=== PATIENT | male | born 1995 | race Caucasian/White ===

== ENCOUNTER 2018-01-22 20:14 | Emergency (ER) | payer MEDICAID, OTHER ==
[2018-01-22] MEDS ORDERED: SODIUM CHLORIDE 0.9% 1,000 ML IV ONE (21:23)
--- NOTE | 2018-01-22 21:28 | ED Physician Documentation ---
History of Present Illness - Stated complaint Stated Complaint: DIZZY/NAUS/FEV/INSOMNIA - Chief complaint Chief Complaint: General - History obtained from History obtained from: Patient - History of Present Illness Timing: Today Pain level max: 0 Pain level now: 0 - Additonal information Additional information: 22-year-old male who presents to the emergency department stating that he felt dizzy and nauseated earlier today. States that he has just not been feeling well today. [place] feverish earlier. Denies any coughing or congestion. No vomiting. Patient states that he has normal bowel movements, but before he has the bowel movement he passes mucus. This is been ongoing for several weeks. No abdominal pain or cramping. No recent travel. Not taking any medications. Review of Systems Constitutional: denies: Myalgias Ears: denies: Ear pain, Drainage/discharge Throat: denies: Sore throat Cardiac: denies: Chest pain / pressure Respiratory: denies: Cough, Wheezing GI: denies: Vomiting, Diarrhea Skin: denies: Rash Musculoskeletal: denies: Neck pain, Back pain Neurologic: denies: Headache PD PAST MEDICAL HISTORY - Past Medical History Past Medical History: No - Past Surgical History Past Surgical History: No - Present Medications Home Medications: Ambulatory Orders Medication Instructions Recorded Confirmed Ondansetron Odt [Zofran] 4 mg TL Q6H PRN #10 tablet 01/22/18 - Allergies Allergies/Adverse Reactions: Allergies Allergy/AdvReac Type Severity Reaction Status Date / Time No Known Drug Allergies Allergy Verified 01/22/18 20:24 - Social History Does the pt smoke?: No Smoking Status: Never smoker Does the pt have substance abuse?: No Substance Use and Type: Marijuana - Immunizations Immunizations are current?: No - POLST Patient has POLST: No PD ED PE NORMAL - Vitals Vital signs reviewed: Yes - General General: Alert and oriented X 3, No acute distress - HEENT HEENT: PERRL, Ears normal, Moist mucous membranes, Pharynx benign - Neck Neck: Supple, no meningeal sign - Cardiac Cardiac: RRR, Strong equal pulses - Respiratory Respiratory: No respiratory distress, Clear bilaterally - Abdomen Abdomen: Soft, Non tender, Non distended - Back Back: No CVA TTP, No spinal TTP - Derm Derm: Warm and dry, No rash - Extremities Extremities: No edema - Neuro Neuro: Alert and oriented X 3, 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, No motor deficit, No sensory deficit Results - Vitals Vitals: Vital Signs - 24 hr 01/22/18 01/22/18 01/22/18 20:20 23:03 23:25 Temperature 36.8 C Heart Rate 70 62 72 Respiratory 17 16 16 Rate Blood Pressure 139/74 H 104/56 L 124/64 O2 Saturation 99 98 98 Oxygen O2 Source Room air - Labs Labs: Laboratory Tests 01/22/18 01/22/18 01/22/18 21:45 21:45 21:50 WBC 7.0 RBC 5.03 Hgb 15.4 Hct 45.4 MCV 90.3 MCH 30.6 MCHC 33.9 RDW 12.3 Plt Count 263 MPV 7.3 L Neut # (Auto) 3.9 Lymph # (Auto) 2.4 [place] # (Auto) 0.5 Eos # (Auto) 0.2 Baso # (Auto) 0.0 Absolute Nucleated RBC 0.01 Nucleated RBC % 0.1 Sodium 135 Potassium 3.4 L Chloride 99 L Carbon Dioxide 26 Anion Gap 10.0 BUN 14 Creatinine 1.0 Estimated GFR (MDRD) 95 Glucose 98 Calcium 9.7 Total Bilirubin 0.8 AST 21 ALT 22 Alkaline Phosphatase 47 Total Protein 8.0 Albumin 5.3 Globulin 2.7 Albumin/Globulin Ratio 2.0 Lipase 23 Influenza A (Rapid) Negative Influenza B (Rapid) Negative Group A Strep Rapid 01/22/18 21:50 WBC RBC Hgb Hct MCV MCH MCHC RDW Plt Count MPV Neut # (Auto) Lymph # (Auto) [place] # (Auto) Eos # (Auto) Baso # (Auto) Absolute Nucleated RBC Nucleated RBC % Sodium Potassium Chloride Carbon Dioxide Anion Gap BUN Creatinine Estimated GFR (MDRD) Glucose Calcium Total Bilirubin AST ALT Alkaline Phosphatase Total Protein Albumin Globulin Albumin/Globulin Ratio Lipase Influenza A (Rapid) Influenza B (Rapid) Group A Strep Rapid Negative PD MEDICAL DECISION MAKING - ED course Complexity details: reviewed results, re-evaluated patient, considered differential, d/w patient ED course: Patient is a 22-year-old male with what appears to be a viral syndrome. He feels much better after resting in the emergency department and receiving IV fluids. Negative influenza. Negative rapid strep. No acute laboratory issues. We will continue supportive care and follow-up with his doctor. Also prescribe Zofran for home for the nausea. Patient counseled regarding signs and symptoms for which I believe and urgent re-evaluation would be necessary. Patient with good understanding of and agreement to plan and is comfortable going home at this time This document was made in part using voice recognition software. While efforts are made to proofread this document, sound alike and grammatical errors may occur. Departure - Departure Disposition: Home, Self Care Clinical Impression: Viral syndrome Condition: Good Instructions: ED Viral Syndrome Follow-Up: Ricki Pardo MD [Primary Care Provider] - Within 1 week Prescriptions: Ondansetron Odt [Zofran] 4 mg TL Q6H PRN #10 tablet PRN Reason: Nausea / Vomiting Comments: Your laboratory testing is normal tonight. Return if you worsen. Follow-up with your doctor for further evaluation and care. Discharge Date/Time: 01/22/18 23:27
[2018-01-22 22:05] LABS: BASOPHILS % (AUTO) 0.5 %; EOSINOPHILS # (AUTO) 0.2 10^3/uL (0.0-0.7); NEUTROPHILS # (AUTO) 3.9 10^3/uL (1.5-6.6)
[2018-01-22 22:07] LABS: EOSINOPHILS % (AUTO) 3.2 %; HGB - HEMOGLOBIN 15.4 g/dL (14.0-18.0); LYMPHOCYTES # (AUTO) 2.4 10^3/uL (1.5-3.5); LYMPHOCYTES % (AUTO) 33.9 %; MEAN CORPUSCULAR HEMOGLOBIN 30.6 pg (27.0-31.0); MEAN CORPUSCULAR HGB CONC 33.9 g/dL (32.0-36.0); MEAN CORPUSCULAR VOLUME 90.3 fL (80.0-94.0); MEAN PLATELET VOLUME 7.3 fL (7.4-11.4); MONOCYTES # (AUTO) 0.5 10^3/uL (0.0-1.0); MONOCYTES % (AUTO) 6.7 %; NEUTROPHILS % (AUTO) 55.7 %; PLT - PLATELET COUNT 263 10^3/uL (130-450); RED BLOOD COUNT 5.03 10^6/uL (4.70-6.10); RED CELL DISTRIBUTION WIDTH 12.3 % (12.0-15.0)
[2018-01-22 22:18] LABS: ALBUMIN 5.3 g/dL (3.2-5.5); BILIRUBIN,TOTAL 0.8 mg/dL (0.2-1.0); CALCIUM 9.7 mg/dL (8.5-10.3)
[2018-01-23 00:01] VITALS: BP 124/64
== END 2018-01-22 23:27 | disposition home or self-care (01) ==
LOC: ED 20:14
DX: B34.9 Viral infection, unspecified (principal); R11.0 Nausea
CPT/HCPCS: 36415; 80053; 83690; 85025; 87070; 87275; 87276; 87430; 96360; 99283

== ENCOUNTER 2019-04-21 21:38 | Emergency (ER) | payer SELFPAY ==
[2019-04-21 21:49] VITALS: BP 110/68
[2019-04-21] MEDS ORDERED: FAMOTIDINE 20 MG TABLET PO STA (22:44)
[2019-04-21] MEDS ORDERED: ONDANSETRON ODT 4 MG Prepack 2 TL PRN (22:44)
--- NOTE | 2019-04-21 22:45 | ED Physician Documentation ---
History of Present Illness - Stated complaint Stated Complaint: VOMITING - Chief complaint Chief Complaint: Abd Pain - Additonal information Additional information: This is a 24-year-old male who presents with now resolved vomiting and epiga stric burning. He states that he has had GERD in the past and yesterday had episode was felt like GERD to him, he was seen in [facility] emergency department and he was prescribed an acid blocking medication as well as Zofran but was unable to pick these up, he is getting them tomorrow. After drinking coffee this morning he had another episode of vomiting and some epigastric burning, but this completely resolved. Now he feels fine, has no discomfort whatsoever, no abdominal pain, no vomiting, he ate an entire sandwich and has also been drinking fluids for several hours without any issue. He denies any chest pain, shortness of breath, history of cardiac problems. He denies fever. No diarrhea. He is hoping for a work note for today. Review of Systems Constitutional: denies: Fever Throat: denies: Dental pain / toothache Cardiac: denies: Chest pain / pressure Respiratory: denies: Dyspnea GI: reports: Vomiting : denies: Dysuria Skin: denies: Rash PD PAST MEDICAL HISTORY - Past Surgical History Past Surgical History: No - Present Medications Home Medications: Ambulatory Orders Medication Instructions Recorded Confirmed Ondansetron Odt [Zofran] 4 mg TL Q6H PRN #10 tablet 01/22/18 04/21/19 Famotidine [Acid Controller] 20 mg PO DAILY #14 tablet 04/21/19 - Allergies Allergies/Adverse Reactions: Allergies Allergy/AdvReac Type Severity Reaction Status Date / Time No Known Drug Allergies Allergy Verified 04/21/19 21:49 - Social History Does the pt smoke?: No Smoking Status: Never smoker Does the pt have substance abuse?: No - Immunizations Immunizations are current?: No - POLST Patient has POLST: No PD ED PE NORMAL - Vitals Vital signs reviewed: Yes - General General: Alert and oriented X 3, No acute distress - HEENT HEENT: PERRL - Neck Neck: Supple, no meningeal sign - Cardiac Cardiac: RRR, No murmur - Respiratory Respiratory: Clear bilaterally - Abdomen Abdomen: Normal bowel sounds, Soft, Non tender, Non distended - Derm Derm: Warm and dry - Extremities Extremities: No deformity - Neuro Neuro: Alert and oriented X 3 - Psych Psych: Normal mood, Normal affect Results - Vitals Vitals: Vital Signs - 24 hr 04/21/19 04/21/19 21:45 23:01 Temperature 36.4 C L 36.5 C Heart Rate 97 Respiratory 18 Rate Blood Pressure 110/68 O2 Saturation 98 Oxygen O2 Source Room air PD MEDICAL DECISION MAKING - ED course Complexity details: considered differential (Gastritis, PUD, pancreatitis, GERD, indigestion, gastroenteritis, Cholecystitis, biliary colic, ACS) ED course: Patient is very well-appearing on examination, his abdomen is completely nontender to deep palpation in all quadrants, his vital signs are unremarkable, and he is symptom-free at this time. He has been able to eat and drink without issue, and I see no signs of acute abdominal pathology, and do not feel that labs or imaging will be useful today. I considered more serious pathology such as ACS, but he never had any chest pain, only epigastric burning which sounds very typical for GERD/gastritis. He does not have any risk factors for cardiac disease and the description of his discomfort is also not convincing for cardiac problems. I discussed That he should start famotidine, and I also prescribed him several of Zofran to go home with while he awaits his prescription to be filled tomorrow. I also reviewed return precautions including chest pain trouble breathing pain in the abdomen, particularly in the right lower quadrant or right upper quadrant, fever, or any other concerning symptoms. Patient continues to be symptom-free, agrees with the plan, and was discharged home in good condition Departure - Departure Disposition: 01 Home, Self Care Clinical Impression: Vomiting Qualifiers: Vomiting type: unspecified Vomiting Intractability: non-intractable Nausea presence: with nausea Qualified Code(s): R11.2 - Nausea with vomiting, unspecified Condition: Good Prescriptions: Famotidine [Acid Controller] 20 mg PO DAILY #14 tablet Comments: You were seen today for vomiting earlier today as well as some burning in the upper abdomen. This may be related to some irritation of your stomach or GERD. Try the famotidine, and the Zofran. If you are having recurrent episodes of vomiting, pain in your lower abdomen, worsening pain in your abdomen, fever, or other concerning symptoms, return to the emergency department Forms: Activity restrictions Discharge Date/Time: 04/21/19 23:01
== END 2019-04-21 23:01 | disposition home or self-care (01) ==
LOC: ED 21:38
DX: R11.2 Nausea with vomiting, unspecified (principal); R10.13 Epigastric pain
CPT/HCPCS: 99282; 99283; A9270

== ENCOUNTER 2019-06-01 21:38 | Emergency (ER) | payer OTHER ==
[2019-06-01 21:49] VITALS: BP 135/78
--- NOTE | 2019-06-01 21:59 | ED Physician Documentation ---
History of Present Illness - Stated complaint Stated Complaint: WORK NOTE - Chief complaint Chief Complaint: General - History obtained from History obtained from: Patient - History of Present Illness Timing: Other (About 2 weeks ago he developed headaches and lightheadedness. This is all much better now, but then he had to continue to be off of work because he was taking care of his brother. Now his boss is requiring a work note to go back to work because of coronavirus concerns.) Review of Systems Constitutional: denies: Fever, Chills GI: denies: Abdominal Pain, Nausea, Vomiting, Diarrhea PD PAST MEDICAL HISTORY - Past Surgical History Past Surgical History: No - Present Medications Home Medications: Ambulatory Orders Medication Instructions Recorded Confirmed Ondansetron Odt [Zofran] 4 mg TL Q6H PRN #10 tablet 01/22/18 04/21/19 Famotidine [Acid Controller] 20 mg PO DAILY #14 tablet 04/21/19 - Allergies Allergies/Adverse Reactions: Allergies Allergy/AdvReac Type Severity Reaction Status Date / Time No Known Drug Allergies Allergy Verified 06/01/19 21:44 - Social History Does the pt smoke?: No Smoking Status: Never smoker Does the pt have substance abuse?: No - Immunizations Immunizations are current?: No - POLST Patient has POLST: No PD ED PE NORMAL - Vitals Vital signs reviewed: Yes - General General: Alert and oriented X 3, No acute distress - HEENT HEENT: PERRL, EOMI - Neck Neck: Supple, no meningeal sign, No bony TTP - Neuro Neuro: Alert and oriented X 3, No motor deficit, No sensory deficit, Normal speech - Psych Psych: Normal mood, Normal affect Results - Vitals Vitals: Vital Signs - 24 hr 06/01/19 21:44 Temperature 36.5 C Heart Rate 88 Respiratory 16 Rate Blood Pressure 135/78 H O2 Saturation 99 Oxygen O2 Source Room air PD MEDICAL DECISION MAKING - ED course ED course: This young man with resolved complaints and missed a lot of work initially because of a vague illness but subsequently had to miss more work because he was taking care of his brother. He presents to the emergency department today without any acute medical current condition, but requesting a work note. He was given a copy of the CDC guidelines in the coronavirus era that say he does not need a work note. Departure - Departure Disposition: 01 Home, Self Care Clinical Impression: Headache Qualifiers: Headache type: tension-type Headache chronicity pattern: acute headache Intractability: not intractable Qualified Code(s): G44.209 - Tension-type headache, unspecified, not intractable Condition: Good Record reviewed to determine appropriate education?: Yes Instructions: ED Cephalgia Unspecified Comments: Call your doctor to arrange a follow-up appointment, make the next available appointment. In the interim, return anytime if worse or if new symptoms develop. PER CDC GUIDLINES: Employers should not require ... a healthcare providers note for employees who are sick to validate their illness, qualify for sick leave, or to return to work. It is not appropriate in this era for your employer to require a work note. If your boss wants to discuss this the phone number here is [phone]. Discharge Date/Time: 06/01/19 22:09
== END 2019-06-01 22:09 | disposition home or self-care (01) ==
LOC: ED 21:38
DX: Z02.89 Encounter for other administrative examinations (principal); G44.209 Tension-type headache, unspecified, not intractable
CPT/HCPCS: 99281; 99283

== ENCOUNTER 2019-11-17 09:08 | Emergency (ER) | payer SELFPAY ==
[2019-11-17 10:00] LABS: RAPID STREP SCREEN Negative (Negative)
[2019-11-17 11:27] VITALS: BP 118/56
--- NOTE | 2019-11-17 11:40 | ED Physician Documentation ---
History of Present Illness - Stated complaint Stated Complaint: SORE THROAT/COUGH - Chief complaint Chief Complaint: Heent - History obtained from History obtained from: Patient - History of Present Illness Timing: Prior to arrival, How many days ago (3) - Additonal information Additional information: 24-year-old male presents to the emergency department for evaluation of 3 to 4 days sore scratchy throat. Reports that his throat feels like sandpaper. He has developed mild cough mostly dry but this a.m. was productive. No tonsilar exudate. Denies fevers or chills. He denies abdominal pain nausea or vomiting. He does report a mild headache that ultimately resolved without treatment. He states that he has many family members at home that have upper respiratory infection symptoms but feels that this is different. He is a smoker denies any other illicit drug use. Denies any pertinent past medical history. No history of hypertension diabetes and takes no medications. Review of Systems Constitutional: denies: Fever, Chills Eyes: reports: Reviewed and negative Ears: reports: Reviewed and negative Nose: denies: Rhinorrhea / runny nose, Congestion, Epistaxis, Foreign Body Throat: reports: Sore throat. denies: Dental pain / toothache, Oral lesions / sores, Swollen tonsils, Swallowed foreign body Cardiac: reports: Reviewed and negative Respiratory: reports: Reviewed and negative GI: reports: Reviewed and negative : reports: Reviewed and negative Skin: reports: Reviewed and negative Musculoskeletal: reports: Reviewed and negative Neurologic: reports: Reviewed and negative Psychiatric: reports: Reviewed and negative PD PAST MEDICAL HISTORY - Past Medical History Past Medical History: No Cardiovascular: None Respiratory: None Neuro: None Endocrine/Autoimmune: None GI: None : None HEENT: None Psych: None Musculoskeletal: None Derm: None - Past Surgical History Past Surgical History: No - Present Medications Home Medications: Ambulatory Orders Medication Instructions Recorded Confirmed Ondansetron Odt [Zofran] 4 mg TL Q6H PRN #10 tablet 01/22/18 04/21/19 Famotidine [Acid Controller] 20 mg PO DAILY #14 tablet 04/21/19 Ibuprofen [Motrin] 600 mg PO Q6H PRN #30 tab 11/17/19 - Allergies Allergies/Adverse Reactions: Allergies Allergy/AdvReac Type Severity Reaction Status Date / Time No Known Drug Allergies Allergy Verified 11/17/19 09:42 - Social History Does the pt smoke?: Yes Smoking Status: Current every day smoker Does the pt drink ETOH?: Yes Does the pt have substance abuse?: No - Immunizations Immunizations are current?: No - POLST Patient has POLST: No PD ED PE NORMAL - General General: Alert and oriented X 3, No acute distress, Well developed/nourished - HEENT HEENT: Atraumatic, EOMI, Ears normal, Moist mucous membranes, Pharynx benign, Other (Mild posterior oropharynx erythema without exudate. No tonsillar swe lling. Uvula is midline. Normal phonation. 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 He has no fevers or tonsillar exudate. No tender anterior cervical lymphadenopathy. Rapid strep is negative. He reports multiple family members sick at home with URI symptoms but feels that this is different. Does not meet [facility] criteria for empiric antibiotics. Will defer antibiotics unless culture positive. Recommend ibuprofen or Tylenol for analgesia and warm salt water gargles. Patient declined COVID-19 screening today. Departure - Departure Disposition: 01 Home, Self Care Clinical Impression: Pharyngitis Qualifiers: Pharyngitis/tonsillitis etiology: unspecified etiology Qualified Code(s): J02.9 - Acute pharyngitis, unspecified Condition: Stable Record reviewed to determine appropriate education?: Yes Instructions: ED Pharyngitis Viral Prescriptions: Ibuprofen [Motrin] 600 mg PO Q6H PRN #30 tab PRN Reason: Pain Comments: Your rapid strep testing today is negative. We are sending it for culture. If your culture is positive for strep and then you will receive notification at a prescription for antibiotics. However this sore throat is most likely due to a virus. I recommend that you gargle with warm salt water 3 times a day for the next 2 to 3 days. I have prescribed ibuprofen for any discomfort. Is important that you stay home from work to help prevent transmission of this virus. You may return to work on Saturday if your symptoms are better. Return to the emergency department if you develop fevers greater than 101, cannot swallow normally have a suddenly severe headache or any other emergent concerns
== END 2019-11-17 12:07 | disposition home or self-care (01) ==
LOC: ED 09:08
DX: J02.9 Acute pharyngitis, unspecified (principal); Z20.828 Contact with and (suspected) exposure to other viral communicable diseases; F17.200 Nicotine dependence, unspecified, uncomplicated
CPT/HCPCS: 87070; 87430; 99283; 99284

== ENCOUNTER 2019-11-19 05:48 | Emergency (ER) | payer SELFPAY ==
--- NOTE | 2019-11-19 05:52 | ED Physician Documentation ---
History of Present Illness - Stated complaint Stated Complaint: COUGH/CONGESTION - History obtained from History obtained from: Patient - Additonal information Additional information: Patient is a 24-year-old male who presents with a scratchy throat stuffy nose and cough with subjective fevers and chills reports she had a Covid test recently but is awaiting the results. Patient is asking for an inhaler just in case she starts wheezing he was seen here a few days ago he had a negative rapid strep.The patient reports he is otherwise healthy and up-to-date on all of his immunizations. Review of Systems Constitutional: reports: Fever, Chills, Myalgias Eyes: reports: Reviewed and negative Ears: reports: Reviewed and negative Nose: reports: Rhinorrhea / runny nose, Congestion, Sinus pressure / pain Throat: reports: Sore throat Cardiac: reports: Reviewed and negative Respiratory: reports: Reviewed and negative GI: reports: Reviewed and negative : reports: Reviewed and negative Skin: reports: Reviewed and negative Musculoskeletal: reports: Reviewed and negative Neurologic: reports: Reviewed and negative Psychiatric: reports: Reviewed and negative Endocrine: reports: Reviewed and negative Immunocompromised: reports: Reviewed and negative PD PAST MEDICAL HISTORY - Past Medical History Cardiovascular: None Respiratory: None Neuro: None Endocrine/Autoimmune: None GI: None : None HEENT: None Psych: None Musculoskeletal: None Derm: None - Past Surgical History Past Surgical History: No - Present Medications Home Medications: Ambulatory Orders Medication Instructions Recorded Confirmed Ondansetron Odt [Zofran] 4 mg TL Q6H PRN #10 tablet 01/22/18 04/21/19 Famotidine [Acid Controller] 20 mg PO DAILY #14 tablet 04/21/19 Ibuprofen [Motrin] 600 mg PO Q6H PRN #30 tab 11/17/19 Albuterol Sulfate [Albuterol 18 gm IH Q4HR PRN #1 [email or web address] 11/19/19 Sulfate Hfa] - Allergies Allergies/Adverse Reactions: Allergies Allergy/AdvReac Type Severity Reaction Status Date / Time No Known Drug Allergies Allergy Verified 11/19/19 06:04 - Social History Does the pt smoke?: Yes Smoking Status: Current every day smoker Does the pt drink ETOH?: Yes Does the pt have substance abuse?: No - Immunizations Immunizations are current?: No - POLST Patient has POLST: No PD ED PE NORMAL - Vitals Vital signs reviewed: Yes - General General: Alert and oriented X 3, No acute distress - HEENT HEENT: PERRL - Neck Neck: Supple, no meningeal sign - Cardiac Cardiac: RRR, No murmur - Respiratory Respiratory: Clear bilaterally - Abdomen Abdomen: Normal bowel sounds, Soft, Non tender, Non distended - Derm Derm: Warm and dry - Extremities Extremities: No deformity - Neuro Neuro: Alert and oriented X 3 - Psych Psych: Normal mood, Normal affect Results - Vitals Vitals: Vital Signs - 24 hr 11/19/19 11/19/19 06:02 06:30 Temperature 36.6 C Heart Rate 90 Respiratory 16 16 Rate Blood Pressure 117/68 O2 Saturation 95 Oxygen O2 Source Room air PD MEDICAL DECISION MAKING - ED course Complexity details: reviewed old records, reviewed results, re-evaluated patient, d/w patient, other ED course: Healthy 24-year-old male presents with viral syndrome. He had a negative Covid screening 2 days ago as well as a negative strep test. He continues to have symptoms of sore throat scratchy throat runny nose mild cough and congestion will be provided and a prescription for an albuterol inhaler to use as needed if he develops wheezing as well as 1 dose of Decadron here in the emergency d epartment. I also would like him to follow-up with a primary care provider today for recheck. Departure - Departure Disposition: 01 Home, Self Care Clinical Impression: Viral syndrome Condition: Stable Instructions: ED Viral Syndrome Follow-Up: Jordon Carver MD [Provider Admit Priv/Credential] - 11/19/19 Prescriptions: Albuterol Sulfate [Albuterol Sulfate Hfa] 18 gm IH Q4HR PRN #1 [email or web address] PRN Reason: Wheezing
[2019-11-19 06:04] VITALS: BP 117/68
[2019-11-19] MEDS ORDERED: DEXAMETHASONE 10 MG/ML VIAL PO STA (06:15)
[2019-11-19] MEDS ORDERED: CHERRY SYRUP 10 ML UDC PO ONE (06:26)
[2019-11-19] MEDS ORDERED: ALBUTEROL NEB 2.5 MG/3 ML INH STA (06:26)
== END 2019-11-19 07:06 | disposition home or self-care (01) ==
LOC: ED 05:48
DX: B34.9 Viral infection, unspecified (principal); F17.200 Nicotine dependence, unspecified, uncomplicated
CPT/HCPCS: 99283; A9270

== ENCOUNTER 2020-11-20 19:04 | Emergency (ER) | payer SELFPAY ==
[2020-11-20] MEDS ORDERED: SODIUM CHLORIDE 0.9% 1,000 ML IV STA (19:08)
[2020-11-20] MEDS ORDERED: ONDANSETRON 4 MG/2 ML VIAL IVP STA (19:08)
--- NOTE | 2020-11-20 19:32 | ED Physician Documentation ---
History of Present Illness - Stated complaint Stated Complaint: LT LOW ABD PX - Chief complaint Chief Complaint: Abd Pain - Additonal information Additional information: 25-year-old male presents the emergency department for evaluation of lower abdominal pain. He reports that yesterday he was having some urinary urgency and frequency though that has improved today. However with the urinary symptoms he was also having pain across the lower abdomen. Today it is now localized to the left lower quadrant. He reports that he has been having adequate bowel movements in fact 3 today. Nonbloody no diarrhea. He has had no fevers. Some nausea but no vomiting. No pertinent past abdominal surgical history. Review of Systems Constitutional: denies: Fever, Chills Eyes: reports: Reviewed and negative Nose: reports: Reviewed and negative Throat: reports: Reviewed and negative Cardiac: reports: Reviewed and negative Respiratory: reports: Reviewed and negative GI: reports: Abdominal Pain, Nausea. denies: Vomiting, Constipation, Diarrhea, Hematemesis : reports: Frequency, Hesitancy. denies: Dysuria, Hematuria Skin: reports: Reviewed and negative Musculoskeletal: reports: Reviewed and negative Neurologic: reports: Reviewed and negative PD PAST MEDICAL HISTORY - Past Medical History Past Medical History: Yes Cardiovascular: None Respiratory: None Neuro: None Endocrine/Autoimmune: None GI: None : None HEENT: None Psych: None Musculoskeletal: None Derm: None - Past Surgical History Past Surgical History: No - Present Medications Home Medications: Ambulatory Orders Medication Instructions Recorded Confirmed Amox/Clav 875/125 [Augmentin] 1 each PO Q12H #20 tablet 11/20/20 - Allergies Allergies/Adverse Reactions: Allergies Allergy/AdvReac Type Severity Reaction Status Date / Time No Known Drug Allergies Allergy Verified 11/20/20 19:11 - Social History Does the pt smoke?: Yes Smoking Status: Current every day smoker Does the pt drink ETOH?: Yes Does the pt have substance abuse?: No - Immunizations Immunizations are current?: No - POLST Patient has POLST: No PD ED PE EXPANDED - General General: Alert, No acute distress, Well developed/nourished - Cardiac Cardiac: Regular Rate, Radial strong equal, Pedal strong equal, Cap refill < 2 sec - Respiratory Respiratory: Clear to ausultation sherri. No: Distress, Labored - Abdomen Abdomen: Normal Bowel sounds, Tender to palpation, LLQ (Focal tenderness left lower quadrant with guarding and rebound. No tenderness of the left CVA.) - Back Back: Normal exam. No: Vertebral tenderness, Soft tissue tenderness, CVA TTP right, CVA TTP left - Derm Derm: Normal color, Warm and dry - Extremities Extremities: Normal. No: Deformity, Tenderness - GCS Eye Opening: Spontaneous Motor: Obeys Commands Verbal: Oriented Total: 15 Results - Vitals Vitals: Vital Signs - 24 hr 11/20/20 11/20/20 19:08 19:09 Temperature 36.2 C L 36.2 C L Heart Rate 82 82 Respiratory 16 16 Rate Blood Pressure 146/80 H 146/80 H O2 Saturation 100 100 Oxygen O2 Source Room air - Labs Labs: Laboratory Tests 11/20/20 11/20/20 11/20/20 19:25 19:25 19:31 WBC 6.5 RBC 5.12 Hgb 15.8 Hct 45.0 MCV 87.9 MCH 30.9 MCHC 35.1 RDW 11.7 L Plt Count 279 MPV 9.2 Neut # (Auto) 4.1 Lymph # (Auto) 1.7 Clark # (Auto) 0.5 Eos # (Auto) 0.2 Baso # (Auto) 0.0 Absolute Nucleated RBC 0.00 Nucleated RBC % 0.0 Sodium 137 Potassium 3.6 Chloride 101 Carbon Dioxide 26 Anion Gap 10.0 BUN 18 Creatinine 1.2 Estimated GFR (MDRD) 75 L Glucose 113 H Calcium 9.4 Total Bilirubin 0.8 AST 30 ALT 48 Alkaline Phosphatase 46 Total Protein 7.9 Albumin 4.8 Globulin 3.1 Albumin/Globulin Ratio 1.5 Lipase 28 Urine Color YELLOW Urine Clarity HAZY Urine pH 7.5 Ur Specific Paragon 1.025 Urine Protein NEGATIVE Urine Glucose (UA) NEGATIVE Urine Ketones NEGATIVE Urine Occult Blood NEGATIVE Urine Nitrite NEGATIVE Urine Bilirubin NEGATIVE Urine Urobilinogen 0.2 (NORMAL) Ur Leukocyte Esterase NEGATIVE Urine RBC None Seen Urine WBC 0-3 Ur Squamous Epith Cells NONE SEEN Amorphous Sediment Few Urine Bacteria Rare Urine Mucus Moderate Strands Ur Microscopic Review INDICATED Urine Culture Comments NOT INDICATED - Rads (name of study) ct abd Radiology: Final report received (Left colonic thickening most suggestive of infection or inflammation. Ischemia is less likely possible. Mildly prominent mesenteric lymph nodes consistent with reactive lymph node enlargement. Appendix not seen. No evidence of appendicitis) PD MEDICAL DECISION MAKING - ED course Complexity details: reviewed results, re-evaluated patient, d/w patient ED course: 25-year-old male presents emergency department for evaluation of acute left lowe r quadrant abdominal pain that began yesterday. On exam he had some guarding and rebound on the left lower quadrant. However screening labs were essentially unremarkable. But given the concern for occult appendectomy a CT of the abdomen was completed. It did show a left colonic thickening most suggestive of an infection or inflammatory process. Patient was started on Augmentin. Discussed the importance of clear liquid diet for 48 hours and then slowly advance. Discussed that if symptoms not markedly improved he may need to see PCP for evaluation of a colonoscopy. Emergent return precautions were discussed for worsening pain, fevers melena, hematochezia or uncontrolled vomiting. Departure - Departure Disposition: 01 Home, Self Care Clinical Impression: LLQ abdominal pain, Inflammation of colonic mucosa Condition: Stable Record reviewed to determine appropriate education?: Yes Prescriptions: Amox/Clav 875/125 [Augmentin] 1 each PO Q12H #20 tablet Comments: Chance you are seen in the emergency department today for left lower abdominal discomfort that began yesterday. Your screening labs do not show any worrisome abnormalities. However the CT scan shows that your colon on the left side is inflamed. This is typically due to infection. I have Electronically transcribed [facility] [place]. I do recommend that you have a clear liquid diet for the next 24 to 48 hours. After that you can slowly advance your diet to start with bananas rice applesauce toast. If at any point you feel that you are having worsening symptoms, black or bloody stools, develop fevers, have uncontrolled vomiting then please return immediately to the ER for a second evaluation.
[2020-11-20 19:33] LABS: BASOPHILS % (AUTO) 0.5 %; EOSINOPHILS # (AUTO) 0.2 10^3/uL (0.0-0.7); EOSINOPHILS % (AUTO) 3.1 %; HGB - HEMOGLOBIN 15.8 g/dL (14.0-18.0); LYMPHOCYTES # (AUTO) 1.7 10^3/uL (1.5-3.5); LYMPHOCYTES % (AUTO) 26.2 %; MEAN CORPUSCULAR HEMOGLOBIN 30.9 pg (27.0-31.0); MEAN CORPUSCULAR HGB CONC 35.1 g/dL (32.0-36.0); MEAN CORPUSCULAR VOLUME 87.9 fL (80.0-94.0); MEAN PLATELET VOLUME 9.2 fL (7.4-11.4); MONOCYTES # (AUTO) 0.5 10^3/uL (0.0-1.0); MONOCYTES % (AUTO) 6.9 %; NEUTROPHILS # (AUTO) 4.1 10^3/uL (1.5-6.6); PLT - PLATELET COUNT 279 10^3/uL (130-450); RED BLOOD COUNT 5.12 10^6/uL (4.70-6.10); RED CELL DISTRIBUTION WIDTH 11.7 % (12.0-15.0); WHITE BLOOD COUNT 6.5 x10^3/uL (4.8-10.8)
[2020-11-20] MEDS ORDERED: MORPHINE 2 MG/ML CARPUJECT IVP STA (19:33)
[2020-11-20] MEDS ORDERED: IOVERSOL 320 100 ML VIAL IVP ONE ×2 (19:43→20:13)
[2020-11-20 19:44] LABS: BILIRUBIN,URINE NEGATIVE (NEGATIVE); GLUCOSE, URINE (UA) NEGATIVE (NEGATIVE); KETONES,URINE (UA) NEGATIVE (NEGATIVE); LEUKOCYTE ESTERASE, URINE NEGATIVE (NEGATIVE); NITRITE,URINE NEGATIVE (NEGATIVE); OCCULT BLOOD,URINE NEGATIVE (NEGATIVE); PH,URINE 7.5 PH (5.0-7.5); PROTEIN,URINE NEGATIVE (NEGATIVE); UROBILINOGEN,URINE 0.2 (NORMAL) E.U./dL (NORMAL)
[2020-11-20 19:45] LABS: CLARITY,URINE HAZY (CLEAR)
[2020-11-20 19:46] LABS: ALBUMIN 4.8 g/dL (3.2-5.5); ALBUMIN/GLOBULIN RATIO 1.5 (1.0-2.2); BILIRUBIN,TOTAL 0.8 mg/dL (0.2-1.0); CALCIUM 9.4 mg/dL (8.5-10.3); CREATININE 1.2 mg/dL (0.6-1.2); POTASSIUM 3.6 mmol/L (3.5-5.0); TOTAL PROTEIN 7.9 g/dL (6.7-8.2)
[2020-11-20 19:54] LABS: AMORPHOUS SEDIMENT,UR Few /LPF; BACTERIA,URINE Rare /HPF (None Seen); MUCUS,URINE Moderate Strands; RBC,URINE None Seen /HPF (0-5); SQUAMOUS EPITHELIAL CELL,UR NONE SEEN (<= Few); WBC,URINE 0-3 /HPF (0-3)
--- NOTE | 2020-11-20 20:23 | CT Report ---
PROCEDURE: Abdomen/Pelvis W INDICATIONS: LLQ abd pain; urinary symptoms CONTRAST: IV CONTRAST: Optiray 320 ml: 100 PO CONTRAST: *NO PO CONTRAST TECHNIQUE: After the administration of IV contrast, 5 mm thick sections acquired from the diaphragms to the symp hysis. 5 mm thick coronal and sagittal reformats were acquired. For radiation dose reduction, the f ollowing was used: automated exposure control, adjustment of mA and/or kV according to patient size. COMPARISON: None. FINDINGS: Image quality: Excellent. ABDOMEN: Lung bases: Lung bases are clear. Heart size is normal. Solid organs: Liver and spleen are normal in size and enhancement. Gallbladder is grossly unremarka ble Biliary system is non dilated. Pancreas enhances normally. No adrenal nodules. Kidneys demons trate normal size and enhancement, without hydronephrosis. Peritoneum and bowel: There is thickening of the transverse and descending colon. Mild fat stranding surrounds the distal descending colon. No free fluid or air. Appendix not seen. No evidence of appen dicitis. Nodes and vessels: No retroperitoneal or mesenteric adenopathy by size criteria. Mildly prominent me senteric lymph nodes. Aorta and inferior vena cava are normal in size. Miscellaneous: No ventral hernias. PELVIS: Genitourinary: Bladder wall thickness is normal. Miscellaneous: No inguinal hernias or adenopathy. Bones: No suspicious bony lesions. No vertebral body compression fractures. IMPRESSION: 1. Left colonic thickening, most suggestive of infection or inflammation patient of this age. Ischemi a is a less likely possibility. 2. Mildly prominent mesenteric lymph nodes, consistent with reactive lymph node enlargement. Reviewed by: Isaac Murdock MD on 11/20/2020 8:21 PM PDT Approved by: Isaac Murdock MD on 11/20/2020 8:21 PM PDT Station ID: [id number]
[2020-11-20 20:54] VITALS: BP 140/79
== END 2020-11-20 20:57 | disposition home or self-care (01) ==
LOC: ED 19:04
DX: K52.9 Noninfective gastroenteritis and colitis, unspecified (principal); R10.32 Left lower quadrant pain; F17.200 Nicotine dependence, unspecified, uncomplicated
CPT/HCPCS: 36415; 74177; 80053; 81001; 83690; 85025; 96374; 99284; Q9967; 81003; 87086

== ENCOUNTER 2021-01-12 08:00 | Outpatient (CLI) | payer SELFPAY | END 2021-01-12 23:59 | disposition home or self-care (01) | LOC: LAB.N 08:00 | PROVIDERS: ATTEND Family Medicine | DX: R07.0 Pain in throat (principal); Z20.822 Contact with and (suspected) exposure to COVID-19 | CPT/HCPCS: 87070 ==

== ENCOUNTER 2021-02-28 16:27 | Emergency (ER) | payer SELFPAY ==
[2021-02-28 16:43] VITALS: BP 133/74
--- NOTE | 2021-02-28 17:00 | ED Physician Documentation ---
PD HPI OPHTHO - Stated complaint Stated Complaint: LT EYE IRRITATION - Chief complaint Chief Complaint: Heent - History obtained from History obtained from: Patient - History of Present Illness Timing - onset: Enter time (1519), Today Timing - duration: Hours Timing - details: Abrupt onset, Still present Location: Left Quality / character: Itching, Burning, Sharp Associated symptoms: Redness, Tearing, FB sensation. 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 He states that it stung and felt like there was something in his eye continuously. He did irrigate but he continues to have a foreign body sensation in the left eye. He does not have any change in his visual acuity. He has not had this happen to him previously. Review of Systems Constitutional: denies: Fever Eyes: reports: Irritation. denies: Loss of vision, Decreased vision, Photophobia, Discharge Ears: denies: Ear pain Nose: denies: Congestion Respiratory: denies: Cough GI: denies: Vomiting PD PAST MEDICAL HISTORY - Past Medical History Cardiovascular: None Respiratory: None Neuro: None Endocrine/Autoimmune: None GI: None : None HEENT: None Psych: None Musculoskeletal: None Derm: None - Past Surgical History Past Surgical History: No - Present Medications Home Medications: Ambulatory Orders Medication Instructions Recorded Confirmed Amox/Clav 875/125 [Augmentin] 1 each PO Q12H #20 tablet 11/20/20 Neomycin/Poly/Dex Ophth Drops 2 drops LEFTEYE QID #5 ml 02/28/21 [Maxitrol Ophth Drops] - Allergies Allergies/Adverse Reactions: Allergies Allergy/AdvReac Type Severity Reaction Status Date / Time No Known Drug Allergies Allergy Verified 02/28/21 16:43 - Social History Does the pt smoke?: Yes Smoking Status: Current every day smoker Does the pt drink ETOH?: Yes Does the pt have substance abuse?: No - Immunizations Immunizations are current?: No - POLST Patient has POLST: No PD ED PE NORMAL - Vitals Vital signs reviewed: Yes (hypertensive ) - General General: No acute distress, Well developed/nourished - HEENT HEENT: Atraumatic, PERRL, EOMI, Other (There is injection to the left sclera. The pH is 7. There is subtle fluroscien uptake to the bottom portion of the cornea. ) - Neck Neck: Supple, no meningeal sign - Respiratory Respiratory: No respiratory distress - Derm Derm: Normal color, Warm and dry, No rash - Extremities Extremities: No deformity, No edema - Neuro Neuro: Alert and oriented X 3, research agricultural engineer 2-12 intact, No motor deficit, No sensory deficit, Normal speech Eye Opening: Spontaneous Motor: Obeys Commands Verbal: Oriented GCS Score: 15 - Psych Psych: Normal mood, Normal affect Results - Vitals Vitals: Vital Signs - 24 hr 02/28/21 16:39 Temperature 35.9 C L Heart Rate 86 Respiratory 18 Rate Blood Pressure 133/74 H O2 Saturation 99 Oxygen O2 Source Room air PD MEDICAL DECISION MAKING - ED course Complexity details: re-evaluated patient, considered differential, d/w patient ED course: 25-year-old male has something in his left eye. He feels that there is foreign material in there and he has irrigated his eye. He has potential exposure to the basic concrete dust or mud. Examination of the eye does not demonstrate obvious foreign body there is some subtle fluorescein uptake in the cornea the bottom portion of the cornea. He is I is further irrigated. Departure - Departure Disposition: 01 Home, Self Care Clinical Impression: Chemical conjunctivitis of left eye Condition: Stable Instructions: ED Chemical Conjunctivitis Follow-Up: Hitesh Simon MD [Provider Admit Priv/Credential] - Prescriptions: Neomycin/Poly/Dex Ophth Drops [Maxitrol Ophth Drops] 2 drops LEFTEYE QID #5 ml Comments: Chance, today it looks like he did get some dust or dirt in your eye and there is a bit of abrasion to the cornea potentially a chemical conjunctivitis. This should heal up well overnight. If you have persistent symptoms tomorrow afternoon follow-up with the quality assurance calibrator, Dr. Simon.
== END 2021-02-28 17:32 | disposition home or self-care (01) ==
LOC: ED 16:27
DX: T65.91XA Toxic effect of unspecified substance, accidental (unintentional), initial encounter (principal); H10.212 Acute toxic conjunctivitis, left eye; F17.200 Nicotine dependence, unspecified, uncomplicated
CPT/HCPCS: 99282

== ENCOUNTER 2022-01-18 21:31 | Emergency (ER) | payer OTHER, MEDICAID ==
[2022-01-18] MEDS ORDERED: MELOXICAM 7.5 MG TABLET PO STA (22:02)
--- NOTE | 2022-01-18 22:05 | ED Physician Documentation ---
History of Present Illness - Stated complaint Stated Complaint: SHLDR INJURY - Chief complaint Chief Complaint: Trauma Ext - History obtained from History obtained from: Patient - History of Present Illness Pain level max: 8 Pain level now: 6 - Additonal information Additional information: Patient is a 26-year-old male who presents to the emergency department with right shoulder pain. This been ongoing for the past week. He was seen at the walk-in clinic earlier tonight. He states that they told him to come here for an x-ray. Worse with movement, better with rest. He works as a fabrication welder and it started after using multiple grinders 1 day. No numbness or tingling. Patient is right-handed. Feels better with the sling he was given earlier tonight as well Review of Systems Constitutional: denies: Fever, Chills Respiratory: denies: Cough GI: denies: Vomiting, Diarrhea Skin: denies: Rash Musculoskeletal: denies: Neck pain, Back pain Neurologic: denies: Headache PD PAST MEDICAL HISTORY - Past Medical History Past Medical History: No Cardiovascular: None Respiratory: None Neuro: None Endocrine/Autoimmune: None GI: None : None HEENT: None Psych: None Musculoskeletal: None Derm: None - Past Surgical History Past Surgical History: No - Present Medications Home Medications: Ambulatory Orders Medication Instructions Recorded Confirmed No Known Home Medications 01/18/22 01/18/22 - Allergies Allergies/Adverse Reactions: Allergies Allergy/AdvReac Type Severity Reaction Status Date / Time No Known Drug Allergies Allergy Verified 01/18/22 21:45 - Social History Does the pt smoke?: Yes Smoking Status: Current every day smoker Does the pt drink ETOH?: Yes Does the pt have substance abuse?: No - Immunizations Immunizations are current?: No - POLST Patient has POLST: No PD ED PE NORMAL - Vitals Vital signs reviewed: Yes - General General: Alert and oriented X 3, No acute distress - HEENT HEENT: Moist mucous membranes - Neck Neck: Supple, no meningeal sign - Derm Derm: Warm and dry - Extremities Extremities: Other (R shoulder - Mild tenderness over the right rotator cuff. There is pain with active range of motion of the right shoulder including abduction and extension. Pain with internal and external rotation as well. Neurovascular intact. Minimal pain with passive range of motion. No deformity.) - Neuro Neuro: Alert and oriented X 3 - Psych Psych: Normal mood, Normal affect Results - Vitals Vitals: Vital Signs - 24 hr 01/18/22 21:35 Temperature 36.8 C Heart Rate 77 Respiratory 16 Rate Blood Pressure 127/70 O2 Saturation 100 Oxygen O2 Source Room air - Rads (name of study) Right shoulder x-ray Radiology: Final report received, EMP read contemporaneously, See rad report (No acute abnormality) PD MEDICAL DECISION MAKING - ED course Complexity details: reviewed results, re-evaluated patient, considered differential, d/w patient ED course: 26-year-old male with what appears to be a right rotator cuff injury. He was given anti-inflammatory medication today at the walk-in clinic and a sling. His x-ray here is unremarkable. He will follow-up with his doctor and orthopedics for further care. Patient counseled regarding signs and symptoms for which I believe and urgent re-evaluation would be necessary. Patient with good understanding of and agreement to plan and is comfortable going home at this time This document was made in part using voice recognition software. While efforts are made to proofread this document, sound alike and grammatical errors may occur. Departure - Departure Disposition: 01 Home, Self Care Clinical Impression: Rotator cuff tendonitis Qualifiers: Laterality: right Qualified Code(s): M75.81 - Other shoulder lesions, right shoulder Condition: Good Instructions: ED Tendinitis Rotator Cuff Follow-Up: your,doctor in 1 week [Other] Comments: Please use the medications as previously prescribed to you. Your x-ray does not show any acute abnormalities. You can wear the sling for comfort. Please return if you worsen. Continue to gently stretch the shoulder as we have discussed tonight. There are braces on [employer] that you can order to help with the shoulder pain as well. You can search for compression shoulder brace
--- NOTE | 2022-01-18 22:50 | XRAY Report ---
PROCEDURE: Shoulder 3 View RT INDICATIONS: Injury to R shoulder a wk ago, c/o pain TECHNIQUE: 3 views of the shoulder were acquired. COMPARISON: None. FINDINGS: Bones: No fractures or dislocations. No suspicious bony lesions. Visualized ribs appear intact. Soft tissues: No suspicious soft tissue calcifications. IMPRESSION: No evidence acute bony abnormality of the right shoulder. If clinical suspicion and/or symptoms persist, further assessment with repeat plain films or advanced imaging (e.g., CT, MRI, or bone scan) may be helpful for further assessment. Reviewed by: Aneesh Mott MD on 01/18/2022 10:48 PM [facility] Approved by: Aneesh Mott MD on 01/18/2022 10:48 PM PST Station ID: [id number]
[2022-01-18 23:07] VITALS: BP 116/70
== END 2022-01-18 23:08 | disposition home or self-care (01) ==
LOC: ED 21:31
DX: M75.81 Other shoulder lesions, right shoulder (principal); F17.200 Nicotine dependence, unspecified, uncomplicated
CPT/HCPCS: 73030; 99282; 99283; A9270

== ENCOUNTER 2022-04-07 13:41 | Outpatient (CLI) | payer OTHER ==
--- NOTE | 2022-04-09 09:27 | MRI Report ---
PROCEDURE: SHOULDER WO - RT INDICATIONS: SPRAIN OF RT ROTATOR CUFF, BICEPS TENDINITIS TECHNIQUE: Noncontrast oblique coronal T2 fast spin echo with fat saturation, oblique sagittal T1 spin echo and T2 fast spin echo with fat saturation, axial T1 spin echo and T2 fast spin echo with fat saturation t hrough the shoulder. COMPARISON: Shoulder radiograph dated 01/18/2022. FINDINGS: Image quality: Excellent. Rotator cuff: There is mildly thickened the distal supraspinatus at its insertion on humeral head. Th e infraspinatus and subscapularis tendons are intact. No full-thickness rotator cuff tendon rupture. No rotator cuff muscle atrophy on sagittal images. Bones and bursae: No bone marrow contusions or fractures. No acromioclavicular joint degeneration. The acromion demonstrates conventional anatomy, without an os acromiale. No pathologic subacromial/ subdeltoid bursal fluid is present. Capsule and soft tissues: In the absence of intra-articular contrast, the labrum and glenohumeral li gaments appear intact. The long head of the biceps tendon is mildly thickened widening bicipital korey ove. The rotator interval appears normal, without fibrosis. The coracohumeral ligament is normal in thickness. IMPRESSION: 1. Distal supraspinatus tendinosis. No rotator cuff tendon rupture. No muscle atrophy. 2. No marrow edema. No fracture or dislocation. No significant joint effusion. 3. No evidence of focal labral tear. 4. Proximal long head of biceps tendinosis. Reviewed by: Eloy Wallace MD on 04/09/2022 9:26 AM PST Approved by: Eloy Wallace MD on 04/09/2022 9:26 AM PST Station ID: [id number]
== END 2022-04-07 13:42 | disposition home or self-care (01) ==
LOC: DI 13:41
PROVIDERS: ATTEND Registered Nurse
DX: S43.421A Sprain of right rotator cuff capsule, initial encounter (principal); M75.21 Bicipital tendinitis, right shoulder; M25.611 Stiffness of right shoulder, not elsewhere classified; M67.813 Other specified disorders of tendon, right shoulder

== ENCOUNTER 2022-04-12 01:45 | Emergency (ER) | payer MEDICAID ==
--- OUTSIDE RECORDS SUMMARY | 2022-04-12 02:10 | EXTERNAL MEDICAL SUMMARY RPT | Continuity of Care Document ---
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 (unknown) (no (unknown) (unknown) precautions. (units (u nknown) date) Patient was unknown) recommended to follow-up to make sure everything is (unknown) (no (unknown) (unknown) release (units (unkno wn) date) (Protonix) unknown) (unknown) (no (unknown) (unknown) tablet vomiting (units (unknown) date) #10 tabs unknown) (unknown) (no (unknown) (unknown) tetanus status. (units (unknown) date) He denies other unknown) medical problems. He states pain was quite (unknown) (no (unknown) (unknown) the thighs and (units (unknown) date) knee and this unknown) dropped onto the groin area. Patient is unsure his (unknown) (no (unknown) (unknown) up follow-up (units (u nknown) date) unknown) Result panel 3 (unknown) (no (unknown) (unknown) (no value) (units (unk nown) date) unknown) (unknown) (no (unknown) (unknown) #18 grams (units (unkn own) date) unknown) (unknown) (no (unknown) (unknown) 02/24/22 (units (unkno wn) date) unknown) (unknown) (no (unknown) (unknown) 0RF (units (unkno wn) date) unknown) (unknown) (no (unknown) (unknown) 1 applic topical (units (unknown) date) TID 14 Days Qty: unknown) 28 0RF (unknown) (no (unknown) (unknown) 12 point review (units (unknown) date) of systems is unknown) negative except for those stated above (unknown) (no (unknown) (unknown) 15:05 (units (unkno wn) date) unknown) (unknown) (no (unknown) (unknown) 2 puff (units (unkno wn) date) INHALATION Q4-6H unknown) PRN (Reason: shortness of breath or wheezing) Qty: 18 (unknown) (no (unknown) (unknown) 20 mg PO DAILY (units (unknown) date) Qty: 14 0RF unknown) (unknown) (no (unknown) (unknown) 4 mg PO BID-TID (units (unknown) date) PRN (Reason: unknown) nausea and vomiting) Qty: 10 0RF (unknown) (no (unknown) (unknown) : [id number] (units (u nknown) date) unknown) (unknown) (no (unknown) (unknown) Age/Sex: 26 / M (units (unknown) date) unknown) (unknown) (no (unknown) (unknown) Allergies (units (unkn own) date) unknown) (unknown) (no (unknown) (unknown) Allergy/AdvReac (units (unknown) date) Type Severity unknown) Reaction Status Date / Time (unknown) (no (unknown) (unknown) Asthma (units (unkno wn) date) unknown) (unknown) (no (unknown) (unknown) BACK: Nontender (units (unknown) date) without deformity unknown) or crepitance. No flank tenderness. (unknown) (no (unknown) (unknown) Blood Pressure (units (unknown) date) 118/60 02/24/22 unknown) 15:05 (unknown) (no (unknown) (unknown) Blood Pressure (units (unknown) date) 118/60 unknown) (unknown) (no (unknown) (unknown) CARDIOVASCULAR: (units (unknown) date) Denies chest unknown) pain, palpitations, orthopnea, edema, (unknown) (no (unknown) (unknown) CARDIOVASCULAR: (units (unknown) date) Regular rate and unknown) rhythm without murmurs, gallops, or rubs. (unknown) (no (unknown) (unknown) CC: (units (unkno wn) date) unknown) (unknown) (no (unknown) (unknown) Chief complaint: (units (unknown) date) Skin/Abscess/Fore unknown) ign Body (unknown) (no (unknown) (unknown) Complicating (units (u nknown) date) co-morbidities: unknown) (unknown) (no (unknown) (unknown) Consultations: (units (unknown) date) unknown) (unknown) (no (unknown) (unknown) Course (units (unkno wn) date) unknown) (unknown) (no (unknown) (unknown) : 1995 (units (unknown) date) Acct:[id number] unknown) (unknown) (no (unknown) (unknown) Data collected (units (unknown) date) from: unknown) (unknown) (no (unknown) (unknown) Date of Service: (units (unknown) date) 02/24/22 unknown) (unknown) (no (unknown) (unknown) Departure (units (unkn own) date) unknown) (unknown) (no (unknown) (unknown) Diagnosis: (units (unk nown) date) unknown) (unknown) (no (unknown) (unknown) Differential (units (u nknown) date) considered, but unknown) not limited to: (unknown) (no (unknown) (unknown) Discharge Plan (units (unknown) date) unknown) (unknown) (no (unknown) (unknown) Discussion: (units (un known) date) unknown) (unknown) (no (unknown) (unknown) Disposition: see (units (unknown) date) below, along with unknown) detailed discharge instructions that have (unknown) (no (unknown) (unknown) ENT: Nose (units (unkn own) date) without bleeding, unknown) purulent drainage. Throat without erythema, (unknown) (no (unknown) (unknown) ER Physician: (units ( unknown) date) *Temp,ED* unknown) (unknown) (no (unknown) (unknown) EXTREMITIES: No (units (unknown) date) edema or joint unknown) tenderness. (unknown) (no (unknown) (unknown) EYES: Pupils (units (u nknown) date) equal round and unknown) reactive. Extraocular motions intact. No scleral (unknown) (no (unknown) (unknown) Emergency Report (units (unknown) date) unknown) (unknown) (no (unknown) (unknown) Exam Narrative: (units (unknown) date) unknown) (unknown) (no (unknown) (unknown) Exam documented (units (unknown) date) above, pertinent unknown) findings include: (unknown) (no (unknown) (unknown) Exam (units (unkno wn) date) unknown) (unknown) (no (unknown) (unknown) GASTROINTESTINAL (units (unknown) date) : Abdomen soft, unknown) non-tender, nondistended. (unknown) (no (unknown) (unknown) GASTROINTESTINAL (units (unknown) date) : Denies nausea, unknown) vomiting, abdominal pain, diarrhea, (unknown) (no (unknown) (unknown) GENERAL: Denies (units (unknown) date) chills, fatigue, unknown) malaise, fever, sweats. (unknown) (no (unknown) (unknown) GENERAL: (units (unkno wn) date) Well-developed unknown) patient, in mild distress. (unknown) (no (unknown) (unknown) : Denies (units (unk nown) date) dysuria, unknown) frequency, incontinence, hematuria, urinary retention. (unknown) (no (unknown) (unknown) General (units (unkno wn) date) unknown) (unknown) (no (unknown) (unknown) HEAD: (units (unkno wn) date) Atraumatic. unknown) Normocephalic. (unknown) (no (unknown) (unknown) HEENT: Denies (units ( unknown) date) sinus pain, ear unknown) pain, sore throat, difficulty swallowing, (unknown) (no (unknown) (unknown) HPI - (units (unkno wn) date) Skin/Abscess/Fore unknown) ign Bdy (unknown) (no (unknown) (unknown) HPI narrative: (units (unknown) date) unknown) (unknown) (no (unknown) (unknown) History of (units (unk nown) date) Present Illness unknown) (unknown) (no (unknown) (unknown) Imaging studies (units (unknown) date) independently unknown) reviewed: (unknown) (no (unknown) (unknown) Independently (units ( unknown) date) reviewed EKG as unknown) above (unknown) (no (unknown) (unknown) Initial Vital (units ( unknown) date) Signs unknown) (unknown) (no (unknown) (unknown) Initial Vital (units ( unknown) date) Signs: unknown) (unknown) (no (unknown) (unknown) [facility] (units (unknown) date) [address] unknown) [place] [address] (unknown) (no (unknown) (unknown) Lab Test results (units (unknown) date) independently unknown) reviewed as above. Pertinent findings: (unknown) (no (unknown) (unknown) MDM - (units (unkno wn) date) Skin/Abscess/Fore unknown) ign Bdy (unknown) (no (unknown) (unknown) MDM Narrative (units ( unknown) date) unknown) (unknown) (no (unknown) (unknown) MIPS Elements: (units (unknown) date) unknown) (unknown) (no (unknown) (unknown) MUSCULOSKELETAL: (units (unknown) date) denies weakness, unknown) joint pain, or bony pain (unknown) (no (unknown) (unknown) Medical History (units (unknown) date) (Reviewed unknown) 02/24/22 @ 01:49 by Ashtyn Sandy DO) (unknown) (no (unknown) (unknown) Medical decision (units (unknown) date) making narrative: unknown) (unknown) (no (unknown) (unknown) Medical records (units (unknown) date) reviewed: unknown) (unknown) (no (unknown) (unknown) Medication (units (unk nown) date) Instructions unknown) Recorded (unknown) (no (unknown) (unknown) Mode of arrival: (units (unknown) date) Ambulatory unknown) (unknown) (no (unknown) (unknown) NECK: Trachea (units ( unknown) date) midline. Non unknown) tender (unknown) (no (unknown) (unknown) NEURO: AOx3. (units (u nknown) date) unknown) (unknown) (no (unknown) (unknown) NEUROLOGIC: (units (un known) date) Denies weakness, unknown) headache, numbness, change in speech, confusion, (unknown) (no (unknown) (unknown) Narrative (units (unkn own) date) unknown) (unknown) (no (unknown) (unknown) Narrative: (units (unk nown) date) unknown) (unknown) (no (unknown) (unknown) No Action (units (unkn own) date) unknown) (unknown) (no (unknown) (unknown) No Known Drug (units ( unknown) date) Allergies Allergy unknown) Verified 02/24/22 15:05 (unknown) (no (unknown) (unknown) Oxygen Delivery (units (unknown) date) Method 02/24/22 unknown) 15:05 (unknown) (no (unknown) (unknown) Oxygen Delivery (units (unknown) date) Method Room Air unknown) (unknown) (no (unknown) (unknown) PSYCHIATRIC: No (units (unknown) date) concerning unknown) psychosocial issues. (unknown) (no (unknown) (unknown) Patient History (units (unknown) date) unknown) (unknown) (no (unknown) (unknown) Patient: (units (unkno wn) date) Terrence Gallagher unknown) e T MR# (unknown) (no (unknown) (unknown) Prescriptions: (units (unknown) date) unknown) (unknown) (no (unknown) (unknown) Previous Rx's (units ( unknown) date) unknown) (unknown) (no (unknown) (unknown) Pulse Oximetry (units (unknown) date) 98 02/24/22 15:05 unknown) (unknown) (no (unknown) (unknown) Pulse Oximetry (units (unknown) date) 98 unknown) (unknown) (no (unknown) (unknown) Pulse Rate 73 (units ( unknown) date) 02/24/22 15:05 unknown) (unknown) (no (unknown) (unknown) Pulse Rate 73 (units ( unknown) date) unknown) (unknown) (no (unknown) (unknown) RESPIRATORY: (units (un known) date) Clear to unknown) auscultation. Breath sounds equal bilaterally. No wheezes, (unknown) (no (unknown) (unknown) RESPIRATORY: (units (u nknown) date) Denies dyspnea, unknown) cough, wheezing, hemoptysis, sputum. (unknown) (no (unknown) (unknown) Re-evaluations: (units (unknown) date) unknown) (unknown) (no (unknown) (unknown) Related Data (units (u nknown) date) unknown) (unknown) (no (unknown) (unknown) Respiratory Rate (units (unknown) date) 16 02/24/22 15:05 unknown) (unknown) (no (unknown) (unknown) Respiratory Rate (units (unknown) date) 16 unknown) (unknown) (no (unknown) (unknown) Review of (units (unkn own) date) Systems unknown) (unknown) (no (unknown) (unknown) SKIN: Denies (units (u nknown) date) rash, skin unknown) lesions, or other (unknown) (no (unknown) (unknown) SKIN: No rash or (units (unknown) date) erythema of unknown) visible areas (unknown) (no (unknown) (unknown) Scores Used: (units (u nknown) date) unknown) (unknown) (no (unknown) (unknown) Signed By: (units (unk nown) date) unknown) (unknown) (no (unknown) (unknown) Smokeless (units (unkn own) date) tobacco user: unknown) chewing tobacco (unknown) (no (unknown) (unknown) Smoking Status: (units (unknown) date) Never smoker unknown) (unknown) (no (unknown) (unknown) Social History (units (unknown) date) (Reviewed unknown) 02/24/22 @ 01:49 by Ashtyn Sandy DO) (unknown) (no (unknown) (unknown) Source: patient (units (unknown) date) unknown) (unknown) (no (unknown) (unknown) Stated (units (unkno wn) date) complaint: Burn unknown) on right hand, infected? (unknown) (no (unknown) (unknown) Substance Use (units ( unknown) date) Type: does not unknown) use (unknown) (no (unknown) (unknown) Temperature 97.6 (units (unknown) date) F 02/24/22 15:05 unknown) (unknown) (no (unknown) (unknown) Temperature 97.6 (units (unknown) date) F unknown) (unknown) (no (unknown) (unknown) This is a (units (unkn own) date) 26-year-old male unknown) presents to the emergency department due to (unknown) (no (unknown) (unknown) Time Seen by (units (u nknown) date) Provider: unknown) 02/24/22 15:36 (unknown) (no (unknown) (unknown) Treatments: (units (un known) date) unknown) (unknown) (no (unknown) (unknown) Vital Signs - 8 (units (unknown) date) hr unknown) (unknown) (no (unknown) (unknown) Vital Signs (units (un known) date) unknown) (unknown) (no (unknown) (unknown) Vital signs: (units (u nknown) date) unknown) (unknown) (no (unknown) (unknown) additional (units (unk nown) date) outpatient follow unknown) up (unknown) (no (unknown) (unknown) aerosol inhaler (units (unknown) date) shortness of unknown) breath or wheezing (unknown) (no (unknown) (unknown) albuterol (units (unkn own) date) sulfate 90 unknown) mcg/actuation 2 puff inhalation Q4-6H PRN 04/13/19 (unknown) (no (unknown) (unknown) albuterol (units (unkn own) date) sulfate 90 unknown) mcg/actuation HFA aerosol inhaler (unknown) (no (unknown) (unknown) bacitracin 500 (units (unknown) date) unit/gram unknown) ointment (unknown) (no (unknown) (unknown) bacitracin 500 (units (unknown) date) unit/gram topical unknown) 1 applic topical TID 14 days #28 02/24/22 (unknown) (no (unknown) (unknown) been reviewed (units ( unknown) date) with patient as unknown) well as indications for ED re-evaluation and (unknown) (no (unknown) (unknown) constipation, (units ( unknown) date) melena. unknown) (unknown) (no (unknown) (unknown) dizziness. (units (unk nown) date) unknown) (unknown) (no (unknown) (unknown) icterus. No (units (un known) date) injection or unknown) drainage. (unknown) (no (unknown) (unknown) ointment grams (units (unknown) date) unknown) (unknown) (no (unknown) (unknown) ondansetron 4 mg (units (unknown) date) disintegrating 4 unknown) mg PO BID-TID PRN nausea and 04/20/19 (unknown) (no (unknown) (unknown) ondansetron 4 mg (units (unknown) date) tablet,disintegra unknown) ting (unknown) (no (unknown) (unknown) pantoprazole 20 (units (unknown) date) mg tablet,delayed unknown) 20 mg PO DAILY #14 tabs 04/20/19 (unknown) (no (unknown) (unknown) pantoprazole (units (u nknown) date) [Protonix] 20 mg unknown) tablet,delayed release (DR/EC) (unknown) (no (unknown) (unknown) rales, or (units (unkn own) date) rhonchi. unknown) (unknown) (no (unknown) (unknown) release (units (unkno wn) date) (Protonix) unknown) (unknown) (no (unknown) (unknown) seizures, (units (unkn own) date) incoordination. unknown) (unknown) (no (unknown) (unknown) tablet vomiting (units (unknown) date) #10 tabs unknown) (unknown) (no (unknown) (unknown) tonsillar (units (unkn own) date) hypertrophy or unknown) exudate. Airway patent. Result panel 4 (unknown) (no (unknown) (unknown) (no value) (units (unk nown) date) unknown) (unknown) (no (unknown) (unknown) #18 grams (units (unkn own) date) unknown) (unknown) (no (unknown) (unknown) (Bactrim DS) (units (u nknown) date) unknown) (unknown) (no (unknown) (unknown) 02/24/22 (units (unkno wn) date) unknown) (unknown) (no (unknown) (unknown) 0RF (units (unkno wn) date) unknown) (unknown) (no (unknown) (unknown) 1 applic topical (units (unknown) date) TID 14 Days Qty: 28 unknown) 0RF (unknown) (no (unknown) (unknown) 1 tab PO Q12H 5 (units (unknown) date) Days Qty: 10 0RF unknown) (unknown) (no (unknown) (unknown) 12 point review of (units (unknown) date) systems is negative unknown) except for those stated above (unknown) (no (unknown) (unknown) 15:05 (units (unkno wn) date) unknown) (unknown) (no (unknown) (unknown) 2 puff INHALATION (units (unknown) date) Q4-6H PRN (Reason: unknown) shortness of breath or wheezing) Qty: 18 (unknown) (no (unknown) (unknown) 20 mg PO DAILY (units (unknown) date) Qty: 14 0RF unknown) (unknown) (no (unknown) (unknown) 4 mg PO BID-TID (units (unknown) date) PRN (Reason: nausea unknown) and vomiting) Qty: 10 0RF (unknown) (no (unknown) (unknown) 500 mg PO QID 5 (units (unknown) date) Days Qty: 20 0RF unknown) (unknown) (no (unknown) (unknown) : [id number] (units (u nknown) date) unknown) (unknown) (no (unknown) (unknown) Activity (units (unkno wn) date) Restrictions/Additi unknown) onal Instructions: (unknown) (no (unknown) (unknown) Age/Sex: 26 / M (units (unknown) date) unknown) (unknown) (no (unknown) (unknown) Allergies (units (unkn own) date) unknown) (unknown) (no (unknown) (unknown) Allergy/AdvReac (units (unknown) date) Type Severity unknown) Reaction Status Date / Time (unknown) (no (unknown) (unknown) Asthma (units (unkno wn) date) unknown) (unknown) (no (unknown) (unknown) BACK: Nontender (units (unknown) date) without deformity unknown) or crepitance. No flank tenderness. (unknown) (no (unknown) (unknown) Blood Pressure (units (unknown) date) 118/60 02/24/22 unknown) 15:05 (unknown) (no (unknown) (unknown) Blood Pressure (units (unknown) date) 118/60 unknown) (unknown) (no (unknown) (unknown) CARDIOVASCULAR: (units (unknown) date) Denies chest pain, unknown) palpitations, orthopnea, edema, (unknown) (no (unknown) (unknown) CARDIOVASCULAR: (units (unknown) date) Regular rate and unknown) rhythm without murmurs, gallops, or rubs. (unknown) (no (unknown) (unknown) CC: Infected wound (units (unknown) date) unknown) (unknown) (no (unknown) (unknown) Chief complaint: (units (unknown) date) Skin/Abscess/Foreig unknown) n Body (unknown) (no (unknown) (unknown) Clinical (units (unkno wn) date) Impression: unknown) (unknown) (no (unknown) (unknown) Complicating (units (u nknown) date) co-morbidities: unknown) None (unknown) (no (unknown) (unknown) Consultations: (units (unknown) date) None unknown) (unknown) (no (unknown) (unknown) Course (units (unkno wn) date) unknown) (unknown) (no (unknown) (unknown) : 1995 (units (unknown) date) Acct:[id number] unknown) (unknown) (no (unknown) (unknown) Data collected (units (unknown) date) from: Previous unknown) records (unknown) (no (unknown) (unknown) Date of Service: (units (unknown) date) 02/24/22 unknown) (unknown) (no (unknown) (unknown) Departure (units (unkn own) date) unknown) (unknown) (no (unknown) (unknown) Diagnosis: (units (unk nown) date) Infected wound unknown) (unknown) (no (unknown) (unknown) Differential (units (u nknown) date) considered, but not unknown) limited to: Superficial soft tissue infection, (unknown) (no (unknown) (unknown) Discharge Plan (units (unknown) date) unknown) (unknown) (no (unknown) (unknown) Discussion: (units (un known) date) Discussed plan with unknown) patient who is agreeable with plan to discharge (unknown) (no (unknown) (unknown) Disposition: see (units (unknown) date) below, along with unknown) detailed discharge instructions that have (unknown) (no (unknown) (unknown) ENT: Nose without (units (unknown) date) bleeding, purulent unknown) drainage. Throat without erythema, (unknown) (no (unknown) (unknown) ER Physician: (units ( unknown) date) Carrillo Browning P.A-C unknown) (unknown) (no (unknown) (unknown) EXTREMITIES: No (units (unknown) date) edema or joint unknown) tenderness. (unknown) (no (unknown) (unknown) EYES: Pupils equal (units (unknown) date) round and reactive. unknown) Extraocular motions intact. No scleral (unknown) (no (unknown) (unknown) Emergency Report (units (unknown) date) unknown) (unknown) (no (unknown) (unknown) Exam Narrative: (units (unknown) date) unknown) (unknown) (no (unknown) (unknown) Exam documented (units (unknown) date) above, pertinent unknown) findings include: Infected wound with (unknown) (no (unknown) (unknown) Exam (units (unkno wn) date) unknown) (unknown) (no (unknown) (unknown) GASTROINTESTINAL: (units (unknown) date) Abdomen soft, unknown) non-tender, nondistended. (unknown) (no (unknown) (unknown) GASTROINTESTINAL: (units (unknown) date) Denies nausea, unknown) vomiting, abdominal pain, diarrhea, (unknown) (no (unknown) (unknown) GENERAL: Denies (units (unknown) date) chills, fatigue, unknown) malaise, fever, sweats. (unknown) (no (unknown) (unknown) GENERAL: (units (unkno wn) date) Well-developed unknown) patient, in mild distress. (unknown) (no (unknown) (unknown) : Denies (units (unk nown) date) dysuria, frequency, unknown) incontinence, hematuria, urinary retention. (unknown) (no (unknown) (unknown) General (units (unkno wn) date) unknown) (unknown) (no (unknown) (unknown) HEAD: Atraumatic. (units (unknown) date) Normocephalic. unknown) (unknown) (no (unknown) (unknown) HEENT: Denies (units ( unknown) date) sinus pain, ear unknown) pain, sore throat, difficulty swallowing, (unknown) (no (unknown) (unknown) HPI - (units (unkno wn) date) Skin/Abscess/Foreig unknown) n Bdy (unknown) (no (unknown) (unknown) HPI narrative: (units (unknown) date) unknown) (unknown) (no (unknown) (unknown) History of Present (units (unknown) date) Illness unknown) (unknown) (no (unknown) (unknown) I hope you feel (units (unknown) date) better soon. unknown) (unknown) (no (unknown) (unknown) Imaging studies (units (unknown) date) independently unknown) reviewed: None obtained (unknown) (no (unknown) (unknown) Independently (units ( unknown) date) reviewed EKG as unknown) above: None obtained (unknown) (no (unknown) (unknown) Infected wound (units (unknown) date) unknown) (unknown) (no (unknown) (unknown) Initial Vital (units ( unknown) date) Signs unknown) (unknown) (no (unknown) (unknown) Initial Vital (units ( unknown) date) Signs: unknown) (unknown) (no (unknown) (unknown) Instructions: DI (units (unknown) date) for Wound Infection unknown) (unknown) (no (unknown) (unknown) [facility] (units (unknown) date) [address] unknown) [place] [address] (unknown) (no (unknown) (unknown) Lab Test results (units (unknown) date) independently unknown) reviewed as above. Pertinent findings: None (unknown) (no (unknown) (unknown) MDM - (units (unkno wn) date) Skin/Abscess/Foreig unknown) n Bdy (unknown) (no (unknown) (unknown) MDM Narrative (units ( unknown) date) unknown) (unknown) (no (unknown) (unknown) MIPS Elements: (units (unknown) date) None unknown) (unknown) (no (unknown) (unknown) MUSCULOSKELETAL: (units (unknown) date) denies weakness, unknown) joint pain, or bony pain (unknown) (no (unknown) (unknown) Medical History (units (unknown) date) (Updated 02/24/22 @ unknown) 16:03 by Carrillo Browning PA-C) (unknown) (no (unknown) (unknown) Medical decision (units (unknown) date) making narrative: unknown) (unknown) (no (unknown) (unknown) Medical records (units (unknown) date) reviewed: Patient unknown) was seen here very early this morning for a (unknown) (no (unknown) (unknown) Medication (units (unk nown) date) Instructions unknown) Recorded (unknown) (no (unknown) (unknown) Mode of arrival: (units (unknown) date) Ambulatory unknown) (unknown) (no (unknown) (unknown) Mupirocin (units (unkn own) date) (Mupirocin 22 Gm unknown) Oint) 1 applic TOP BID TARAS (unknown) (no (unknown) (unknown) NECK: Trachea (units ( unknown) date) midline. Non tender unknown) (unknown) (no (unknown) (unknown) NEURO: AOx3. (units (u nknown) date) unknown) (unknown) (no (unknown) (unknown) NEUROLOGIC: Denies (units (unknown) date) weakness, headache, unknown) numbness, change in speech, confusion, (unknown) (no (unknown) (unknown) Narrative (units (unkn own) date) unknown) (unknown) (no (unknown) (unknown) Narrative: (units (unk nown) date) unknown) (unknown) (no (unknown) (unknown) New (units (unkno wn) date) unknown) (unknown) (no (unknown) (unknown) No Action (units (unkn own) date) unknown) (unknown) (no (unknown) (unknown) No Known Drug (units ( unknown) date) Allergies Allergy unknown) Verified 02/24/22 15:05 (unknown) (no (unknown) (unknown) Ordered: (units (unkno wn) date) unknown) (unknown) (no (unknown) (unknown) Orders (units (unkno wn) date) unknown) (unknown) (no (unknown) (unknown) Oxygen Delivery (units (unknown) date) Method 02/24/22 unknown) 15:05 (unknown) (no (unknown) (unknown) Oxygen Delivery (units (unknown) date) Method Room Air unknown) (unknown) (no (unknown) (unknown) PSYCHIATRIC: No (units (unknown) date) concerning unknown) psychosocial issues. (unknown) (no (unknown) (unknown) Patient (units (unkno wn) date) Disposition: Home unknown) (unknown) (no (unknown) (unknown) Patient History (units (unknown) date) unknown) (unknown) (no (unknown) (unknown) Patient: (units (unkno wn) date) Elliott,Eze unknown) T MR# (unknown) (no (unknown) (unknown) Please leave it as (units (unknown) date) is and do not use unknown) any tools to further ?mess with? the wound. (unknown) (no (unknown) (unknown) Prescriptions: (units (unknown) date) unknown) (unknown) (no (unknown) (unknown) Previous Rx's (units ( unknown) date) unknown) (unknown) (no (unknown) (unknown) Pulse Oximetry 98 (units (unknown) date) 02/24/22 15:05 unknown) (unknown) (no (unknown) (unknown) Pulse Oximetry 98 (units (unknown) date) unknown) (unknown) (no (unknown) (unknown) Pulse Rate 73 (units ( unknown) date) 02/24/22 15:05 unknown) (unknown) (no (unknown) (unknown) Pulse Rate 73 (units ( unknown) date) unknown) (unknown) (no (unknown) (unknown) RESPIRATORY: Clear (units (unknown) date) to auscultation. unknown) Breath sounds equal bilaterally. No wheezes, (unknown) (no (unknown) (unknown) RESPIRATORY: (units (u nknown) date) Denies dyspnea, unknown) cough, wheezing, hemoptysis, sputum. (unknown) (no (unknown) (unknown) Re-evaluations: (units (unknown) date) None unknown) (unknown) (no (unknown) (unknown) Related Data (units (u nknown) date) unknown) (unknown) (no (unknown) (unknown) Respiratory Rate (units (unknown) date) 16 02/24/22 15:05 unknown) (unknown) (no (unknown) (unknown) Respiratory Rate (units (unknown) date) 16 unknown) (unknown) (no (unknown) (unknown) Review of Systems (units (unknown) date) unknown) (unknown) (no (unknown) (unknown) SKIN: Open wound (units (unknown) date) to the dorsal unknown) aspect of the right 3rd MCP joint. No purulent (unknown) (no (unknown) (unknown) SKIN: Wound to (units (unknown) date) right knuckle of unknown) 3rd digit (unknown) (no (unknown) (unknown) Scores Used: None (units (unknown) date) unknown) (unknown) (no (unknown) (unknown) Signed By: (units (unk nown) date) unknown) (unknown) (no (unknown) (unknown) Smokeless tobacco (units (unknown) date) user: chewing unknown) tobacco (unknown) (no (unknown) (unknown) Smoking Status: (units (unknown) date) Never smoker unknown) (unknown) (no (unknown) (unknown) Social History (units (unknown) date) (Reviewed 02/24/22 unknown) @ 01:49 by Ashtyn Sandy DO) (unknown) (no (unknown) (unknown) Source: patient (units (unknown) date) unknown) (unknown) (no (unknown) (unknown) Stand Alone Forms: (units (unknown) date) Patient Portal/API unknown) (unknown) (no (unknown) (unknown) Stated complaint: (units (unknown) date) Burn on right hand, unknown) infected? (unknown) (no (unknown) (unknown) Substance Use (units ( unknown) date) Type: does not use unknown) (unknown) (no (unknown) (unknown) Temperature 97.6 F (units (unknown) date) 02/24/22 15:05 unknown) (unknown) (no (unknown) (unknown) Temperature 97.6 F (units (unknown) date) unknown) (unknown) (no (unknown) (unknown) [facility]units ( unknown) date[facility]. It seems (unknown) (no (unknown) (unknown) This is a (units (unkn own) date) 26-year-old male unknown) presents to the emergency department due to an (unknown) (no (unknown) (unknown) This is a (units (unkno wn) date) 26-year-old male unknown) presents to the emergency department with an infected (unknown) (no (unknown) (unknown) Time Seen by (units (u nknown) date) Provider: 02/24/22 unknown) 15:36 (unknown) (no (unknown) (unknown) Treatments: Oral (units (unknown) date) antibiotics unknown) prescribed, mupirocin ointment and dressing (unknown) (no (unknown) (unknown) Vital Signs - 8 hr (units (unknown) date) unknown) (unknown) (no (unknown) (unknown) Vital Signs (units (un known) date) unknown) (unknown) (no (unknown) (unknown) Vital signs: (units (u nknown) date) unknown) (unknown) (no (unknown) (unknown) additional (units (unk nown) date) outpatient follow unknown) up (unknown) (no (unknown) (unknown) aerosol inhaler (units (unknown) date) shortness of breath unknown) or wheezing (unknown) (no (unknown) (unknown) albuterol sulfate (units (unknown) date) 90 mcg/actuation 2 unknown) puff inhalation Q4-6H PRN 04/13/19 (unknown) (no (unknown) (unknown) albuterol sulfate (units (unknown) date) 90 mcg/actuation unknown) HFA aerosol inhaler (unknown) (no (unknown) (unknown) applied (units (unkno wn) date) unknown) (unknown) (no (unknown) (unknown) bacitracin 500 (units (unknown) date) unit/gram ointment unknown) (unknown) (no (unknown) (unknown) bacitracin 500 (units (unknown) date) unit/gram topical 1 unknown) applic topical TID 14 days #28 02/24/22 (unknown) (no (unknown) (unknown) been reviewed with (units (unknown) date) patient as well as unknown) indications for ED re-evaluation and (unknown) (no (unknown) (unknown) burn to his groin (units (unknown) date) unknown) (unknown) (no (unknown) (unknown) cephalexin 500 mg (units (unknown) date) capsule 500 mg PO unknown) QID 5 days #20 caps 02/24/22 (unknown) (no (unknown) (unknown) cephalexin 500 mg (units (unknown) date) capsule unknown) (unknown) (no (unknown) (unknown) constipation, (units ( unknown) date) melena. unknown) (unknown) (no (unknown) (unknown) days. He began (units (unknown) date) becoming it is unknown) concerned when he noticed a red streaking going (unknown) (no (unknown) (unknown) dizziness. (units (unk nown) date) unknown) (unknown) (no (unknown) (unknown) drainage and (units (u nknown) date) discharge from the unknown) wound to his hand. (unknown) (no (unknown) (unknown) drainage noted. (units (unknown) date) Small amount of unknown) erythematous streaking up the dorsal aspect of (unknown) (no (unknown) (unknown) erythematous (units (u nknown) date) streaking up the unknown) dorsal aspect of the hand (unknown) (no (unknown) (unknown) fracture, (units (unkn own) date) osteomyelitis, unknown) flexor tenosynovitis (unknown) (no (unknown) (unknown) icterus. No (units (un known) date) injection or unknown) drainage. (unknown) (no (unknown) (unknown) infected wound to (units (unknown) date) the right 3rd MCP unknown) joint on the dorsal aspect. Patient states (unknown) (no (unknown) (unknown) infection. Please (units (unknown) date) I strongly unknown) recommend you not pick any further at the wound. (unknown) (no (unknown) (unknown) joint infection, (units (unknown) date) flexor unknown) tenosynovitis, osteomyelitis, or fracture. Patient will (unknown) (no (unknown) (unknown) mg-trimethoprim (units (unknown) date) 160 mg tablet unknown) (unknown) (no (unknown) (unknown) noticed some clear (units (unknown) date) and milky drainage unknown) from the wound over the last couple of (unknown) (no (unknown) (unknown) obtained (units (unkno wn) date) unknown) (unknown) (no (unknown) (unknown) ointment grams (units (unknown) date) unknown) (unknown) (no (unknown) (unknown) ondansetron 4 mg (units (unknown) date) disintegrating 4 mg unknown) PO BID-TID PRN nausea and 04/20/19 (unknown) (no (unknown) (unknown) ondansetron 4 mg (units (unknown) date) tablet,disintegrati unknown) ng (unknown) (no (unknown) (unknown) other concerning (units (unknown) date) signs or symptoms. unknown) Tetanus is up-to-date. (unknown) (no (unknown) (unknown) pain with passive (units (unknown) date) flexion or unknown) extension, no joint stiffness (unknown) (no (unknown) (unknown) pantoprazole 20 mg (units (unknown) date) tablet,delayed 20 unknown) mg PO DAILY #14 tabs 04/20/19 (unknown) (no (unknown) (unknown) pantoprazole (units (u nknown) date) [Protonix] 20 mg unknown) tablet,delayed release (DR/EC) (unknown) (no (unknown) (unknown) passive flexion or (units (unknown) date) extension, no joint unknown) stiffness, low concern for any kind of (unknown) (no (unknown) (unknown) prescribed with (units (unknown) date) Keflex and Bactrim unknown) as patient did describe having some milky (unknown) (no (unknown) (unknown) rales, or rhonchi. (units (unknown) date) unknown) (unknown) (no (unknown) (unknown) release (Protonix) (units (unknown) date) unknown) (unknown) (no (unknown) (unknown) seizures, (units (unkn own) date) incoordination. unknown) (unknown) (no (unknown) (unknown) sulfamethoxazole (units (unknown) date) 800 1 tab PO Q12H 5 unknown) days #10 tabs 02/24/22 (unknown) (no (unknown) (unknown) sulfamethoxazole-t (units (unknown) date) rimethoprim unknown) [Bactrim DS] 800-160 mg tablet (unknown) (no (unknown) (unknown) tablet vomiting (units (unknown) date) #10 tabs unknown) (unknown) (no (unknown) (unknown) that he cut his (units (unknown) date) right knuckle a few unknown) days ago and has been picking at it and has (unknown) (no (unknown) (unknown) the infection. The (units (unknown) date) ointment we gave unknown) you should also help avoid any further (unknown) (no (unknown) (unknown) the right hand to (units (unknown) date) approximally the unknown) wrist. No joint irritability, no significant (unknown) (no (unknown) (unknown) these antibiotics (units (unknown) date) at the same time. unknown) Please take with food. This should treat (unknown) (no (unknown) (unknown) to have a small (units (unknown) date) mild superficial unknown) infection to your hand. Please take both of (unknown) (no (unknown) (unknown) tonsillar (units (unkn own) date) hypertrophy or unknown) exudate. Airway patent. (unknown) (no (unknown) (unknown) up the dorsal (units ( unknown) date) aspect of his hand. unknown) Denies any fevers, nausea, vomiting, or any (unknown) (no (unknown) (unknown) wound to the right (units (unknown) date) knuckle. Patient unknown) has no joint irritability, no pain with Result panel 5 (unknown) (no (unknown) (unknown) (no value) (units (unk nown) date) unknown) (unknown) (no (unknown) (unknown) #18 grams (units (unkn own) date) unknown) (unknown) (no (unknown) (unknown) <Electronically (units (unknown) date) signed by Carrillo Osei unknown) Nam> (unknown) (no (unknown) (unknown) (Bactrim DS) (units (u nknown) date) unknown) (unknown) (no (unknown) (unknown) 02/24/22 1811 (units ( unknown) date) unknown) (unknown) (no (unknown) (unknown) 02/24/22 (units (unkno wn) date) unknown) (unknown) (no (unknown) (unknown) 0RF (units (unkno wn) date) unknown) (unknown) (no (unknown) (unknown) 1 applic topical (units (unknown) date) TID 14 Days Qty: 28 unknown) 0RF (unknown) (no (unknown) (unknown) 1 tab PO Q12H 5 (units (unknown) date) Days Qty: 10 0RF unknown) (unknown) (no (unknown) (unknown) 12 point review of (units (unknown) date) systems is negative unknown) except for those stated above (unknown) (no (unknown) (unknown) 15:05 (units (unkno wn) date) unknown) (unknown) (no (unknown) (unknown) 2 puff INHALATION (units (unknown) date) Q4-6H PRN (Reason: unknown) shortness of breath or wheezing) Qty: 18 (unknown) (no (unknown) (unknown) 20 mg PO DAILY (units (unknown) date) Qty: 14 0RF unknown) (unknown) (no (unknown) (unknown) 4 mg PO BID-TID (units (unknown) date) PRN (Reason: nausea unknown) and vomiting) Qty: 10 0RF (unknown) (no (unknown) (unknown) 500 mg PO QID 5 (units (unknown) date) Days Qty: 20 0RF unknown) (unknown) (no (unknown) (unknown) : [id number] (units (u nknown) date) unknown) (unknown) (no (unknown) (unknown) Activity (units (unkno wn) date) Restrictions/Additi unknown) onal Instructions: (unknown) (no (unknown) (unknown) Age/Sex: 26 / M (units (unknown) date) unknown) (unknown) (no (unknown) (unknown) Allergies (units (unkn own) date) unknown) (unknown) (no (unknown) (unknown) Allergy/AdvReac (units (unknown) date) Type Severity unknown) Reaction Status Date / Time (unknown) (no (unknown) (unknown) Asthma (units (unkno wn) date) unknown) (unknown) (no (unknown) (unknown) BACK: Nontender (units (unknown) date) without deformity unknown) or crepitance. No flank tenderness. (unknown) (no (unknown) (unknown) Blood Pressure (units (unknown) date) 118/60 02/24/22 unknown) 15:05 (unknown) (no (unknown) (unknown) Blood Pressure (units (unknown) date) 118/60 unknown) (unknown) (no (unknown) (unknown) CARDIOVASCULAR: (units (unknown) date) Denies chest pain, unknown) palpitations, orthopnea, edema, (unknown) (no (unknown) (unknown) CARDIOVASCULAR: (units (unknown) date) Regular rate and unknown) rhythm without murmurs, gallops, or rubs. (unknown) (no (unknown) (unknown) CC: Infected wound (units (unknown) date) unknown) (unknown) (no (unknown) (unknown) Chief complaint: (units (unknown) date) Skin/Abscess/Foreig unknown) n Body (unknown) (no (unknown) (unknown) Clinical (units (unkno wn) date) Impression: unknown) (unknown) (no (unknown) (unknown) Complicating (units (u nknown) date) co-morbidities: unknown) None (unknown) (no (unknown) (unknown) Consultations: (units (unknown) date) None unknown) (unknown) (no (unknown) (unknown) Course (units (unkno wn) date) unknown) (unknown) (no (unknown) (unknown) : 1995 (units (unknown) date) Acct:[id number] unknown) (unknown) (no (unknown) (unknown) Data collected (units (unknown) date) from: Previous unknown) records (unknown) (no (unknown) (unknown) Date of Service: (units (unknown) date) 02/24/22 unknown) (unknown) (no (unknown) (unknown) Departure (units (unkn own) date) unknown) (unknown) (no (unknown) (unknown) Diagnosis: (units (unk nown) date) Infected wound unknown) (unknown) (no (unknown) (unknown) Differential (units (u nknown) date) considered, but not unknown) limited to: Superficial soft tissue infection, (unknown) (no (unknown) (unknown) Discharge Plan (units (unknown) date) unknown) (unknown) (no (unknown) (unknown) Discussion: (units (un known) date) Discussed plan with unknown) patient who is agreeable with plan to discharge (unknown) (no (unknown) (unknown) Disposition: see (units (unknown) date) below, along with unknown) detailed discharge instructions that have (unknown) (no (unknown) (unknown) ENT: Nose without (units (unknown) date) bleeding, purulent unknown) drainage. Throat without erythema, (unknown) (no (unknown) (unknown) ER Physician: (units ( unknown) date) Carrillo Browning P.A-C unknown) (unknown) (no (unknown) (unknown) EXTREMITIES: No (units (unknown) date) edema or joint unknown) tenderness. (unknown) (no (unknown) (unknown) EYES: Pupils equal (units (unknown) date) round and reactive. unknown) Extraocular motions intact. No scleral (unknown) (no (unknown) (unknown) Emergency Report (units (unknown) date) unknown) (unknown) (no (unknown) (unknown) Exam Narrative: (units (unknown) date) unknown) (unknown) (no (unknown) (unknown) Exam documented (units (unknown) date) above, pertinent unknown) findings include: Infected wound with (unknown) (no (unknown) (unknown) Exam (units (unkno wn) date) unknown) (unknown) (no (unknown) (unknown) GASTROINTESTINAL: (units (unknown) date) Abdomen soft, unknown) non-tender, nondistended. (unknown) (no (unknown) (unknown) GASTROINTESTINAL: (units (unknown) date) Denies nausea, unknown) vomiting, abdominal pain, diarrhea, (unknown) (no (unknown) (unknown) GENERAL: Denies (units (unknown) date) chills, fatigue, unknown) malaise, fever, sweats. (unknown) (no (unknown) (unknown) GENERAL: (units (unkno wn) date) Well-developed unknown) patient, in mild distress. (unknown) (no (unknown) (unknown) : Denies (units (unk nown) date) dysuria, frequency, unknown) incontinence, hematuria, urinary retention. (unknown) (no (unknown) (unknown) General (units (unkno wn) date) unknown) (unknown) (no (unknown) (unknown) HEAD: Atraumatic. (units (unknown) date) Normocephalic. unknown) (unknown) (no (unknown) (unknown) HEENT: Denies (units ( unknown) date) sinus pain, ear unknown) pain, sore throat, difficulty swallowing, (unknown) (no (unknown) (unknown) HPI - (units (unkno wn) date) Skin/Abscess/Foreig unknown) n Bdy (unknown) (no (unknown) (unknown) HPI narrative: (units (unknown) date) unknown) (unknown) (no (unknown) (unknown) History of Present (units (unknown) date) Illness unknown) (unknown) (no (unknown) (unknown) I hope you feel (units (unknown) date) better soon. unknown) (unknown) (no (unknown) (unknown) Imaging studies (units (unknown) date) independently unknown) reviewed: None obtained (unknown) (no (unknown) (unknown) Independently (units ( unknown) date) reviewed EKG as unknown) above: None obtained (unknown) (no (unknown) (unknown) Infected wound (units (unknown) date) unknown) (unknown) (no (unknown) (unknown) Initial Vital (units ( unknown) date) Signs unknown) (unknown) (no (unknown) (unknown) Initial Vital (units ( unknown) date) Signs: unknown) (unknown) (no (unknown) (unknown) Instructions: DI (units (unknown) date) for Wound Infection unknown) (unknown) (no (unknown) (unknown) [facility] (units (unknown) date) [address] unknown) [place] [address] (unknown) (no (unknown) (unknown) Lab Test results (units (unknown) date) independently unknown) reviewed as above. Pertinent findings: None (unknown) (no (unknown) (unknown) MDM - (units (unkno wn) date) Skin/Abscess/Foreig unknown) n Bdy (unknown) (no (unknown) (unknown) MDM Narrative (units ( unknown) date) unknown) (unknown) (no (unknown) (unknown) MIPS Elements: (units (unknown) date) None unknown) (unknown) (no (unknown) (unknown) MUSCULOSKELETAL: (units (unknown) date) denies weakness, unknown) joint pain, or bony pain (unknown) (no (unknown) (unknown) Medical History (units (unknown) date) (Updated 02/24/22 @ unknown) 16:03 by Carrillo Browning PA-C) (unknown) (no (unknown) (unknown) Medical decision (units (unknown) date) making narrative: unknown) (unknown) (no (unknown) (unknown) Medical records (units (unknown) date) reviewed: Patient unknown) was seen here very early this morning for a (unknown) (no (unknown) (unknown) Medication (units (unk nown) date) Instructions unknown) Recorded (unknown) (no (unknown) (unknown) Mode of arrival: (units (unknown) date) Ambulatory unknown) (unknown) (no (unknown) (unknown) Mupirocin (units (unkn own) date) (Mupirocin 22 Gm unknown) Oint) 1 applic TOP BID TARAS (unknown) (no (unknown) (unknown) NECK: Trachea (units ( unknown) date) midline. Non tender unknown) (unknown) (no (unknown) (unknown) NEURO: AOx3. (units (u nknown) date) unknown) (unknown) (no (unknown) (unknown) NEUROLOGIC: Denies (units (unknown) date) weakness, headache, unknown) numbness, change in speech, confusion, (unknown) (no (unknown) (unknown) Narrative (units (unkn own) date) unknown) (unknown) (no (unknown) (unknown) Narrative: (units (unk nown) date) unknown) (unknown) (no (unknown) (unknown) New (units (unkno wn) date) unknown) (unknown) (no (unknown) (unknown) No Action (units (unkn own) date) unknown) (unknown) (no (unknown) (unknown) No Known Drug (units ( unknown) date) Allergies Allergy unknown) Verified 02/24/22 15:05 (unknown) (no (unknown) (unknown) Ordered: (units (unkno wn) date) unknown) (unknown) (no (unknown) (unknown) Orders (units (unkno wn) date) unknown) (unknown) (no (unknown) (unknown) Oxygen Delivery (units (unknown) date) Method 02/24/22 unknown) 15:05 (unknown) (no (unknown) (unknown) Oxygen Delivery (units (unknown) date) Method Room Air unknown) (unknown) (no (unknown) (unknown) PSYCHIATRIC: No (units (unknown) date) concerning unknown) psychosocial issues. (unknown) (no (unknown) (unknown) Patient (units (unkno wn) date) Disposition: Home unknown) (unknown) (no (unknown) (unknown) Patient History (units (unknown) date) unknown) (unknown) (no (unknown) (unknown) Patient: (units (unkno wn) date) Eze Gallagher unknown) T MR# (unknown) (no (unknown) (unknown) Please leave it as (units (unknown) date) is and do not use unknown) any tools to further ?mess with? the wound. (unknown) (no (unknown) (unknown) Prescriptions: (units (unknown) date) unknown) (unknown) (no (unknown) (unknown) Previous Rx's (units ( unknown) date) unknown) (unknown) (no (unknown) (unknown) Pulse Oximetry 98 (units (unknown) date) 02/24/22 15:05 unknown) (unknown) (no (unknown) (unknown) Pulse Oximetry 98 (units (unknown) date) unknown) (unknown) (no (unknown) (unknown) Pulse Rate 73 (units ( unknown) date) 02/24/22 15:05 unknown) (unknown) (no (unknown) (unknown) Pulse Rate 73 (units ( unknown) date) unknown) (unknown) (no (unknown) (unknown) RESPIRATORY: Clear (units (unknown) date) to auscultation. unknown) Breath sounds equal bilaterally. No wheezes, (unknown) (no (unknown) (unknown) RESPIRATORY: (units (u nknown) date) Denies dyspnea, unknown) cough, wheezing, hemoptysis, sputum. (unknown) (no (unknown) (unknown) Re-evaluations: (units (unknown) date) None unknown) (unknown) (no (unknown) (unknown) Related Data (units (u nknown) date) unknown) (unknown) (no (unknown) (unknown) Respiratory Rate (units (unknown) date) 16 02/24/22 15:05 unknown) (unknown) (no (unknown) (unknown) Respiratory Rate (units (unknown) date) 16 unknown) (unknown) (no (unknown) (unknown) Review of Systems (units (unknown) date) unknown) (unknown) (no (unknown) (unknown) SKIN: Open wound (units (unknown) date) to the dorsal unknown) aspect of the right 3rd MCP joint. No purulent (unknown) (no (unknown) (unknown) SKIN: Wound to (units (unknown) date) right knuckle of unknown) 3rd digit (unknown) (no (unknown) (unknown) Scores Used: None (units (unknown) date) unknown) (unknown) (no (unknown) (unknown) Signed By: (units (unk nown) date) unknown) (unknown) (no (unknown) (unknown) Smokeless tobacco (units (unknown) date) user: chewing unknown) tobacco (unknown) (no (unknown) (unknown) Smoking Status: (units (unknown) date) Never smoker unknown) (unknown) (no (unknown) (unknown) Social History (units (unknown) date) (Reviewed 02/24/22 unknown) @ 01:49 by Ashtyn Sandy DO) (unknown) (no (unknown) (unknown) Source: patient (units (unknown) date) unknown) (unknown) (no (unknown) (unknown) Stand Alone Forms: (units (unknown) date) Patient Portal/API unknown) (unknown) (no (unknown) (unknown) Stated complaint: (units (unknown) date) Burn on right hand, unknown) infected? (unknown) (no (unknown) (unknown) Substance Use (units ( unknown) date) Type: does not use unknown) (unknown) (no (unknown) (unknown) Temperature 97.6 F (units (unknown) date) 02/24/22 15:05 unknown) (unknown) (no (unknown) (unknown) Temperature 97.6 F (units (unknown) date) unknown) (unknown) (no (unknown) (unknown) Thank you for (units ( unknown) date) coming to the [facility] Emergency Department today. It seems (unknown) (no (unknown) (unknown) This is a (units (unkn own) date) 26-year-old male unknown) presents to the emergency department due to an (unknown) (no (unknown) (unknown) This is a (units (unkno wn) date) 26-year-old male unknown) presents to the emergency department with an infected (unknown) (no (unknown) (unknown) Time Seen by (units (u nknown) date) Provider: 02/24/22 unknown) 15:36 (unknown) (no (unknown) (unknown) Treatments: Oral (units (unknown) date) antibiotics unknown) prescribed, mupirocin ointment and dressing (unknown) (no (unknown) (unknown) Vital Signs - 8 hr (units (unknown) date) unknown) (unknown) (no (unknown) (unknown) Vital Signs (units (un known) date) unknown) (unknown) (no (unknown) (unknown) Vital signs: (units (u nknown) date) unknown) (unknown) (no (unknown) (unknown) additional (units (unk nown) date) outpatient follow unknown) up (unknown) (no (unknown) (unknown) aerosol inhaler (units (unknown) date) shortness of breath unknown) or wheezing (unknown) (no (unknown) (unknown) albuterol sulfate (units (unknown) date) 90 mcg/actuation 2 unknown) puff inhalation Q4-6H PRN 04/13/19 (unknown) (no (unknown) (unknown) albuterol sulfate (units (unknown) date) 90 mcg/actuation unknown) HFA aerosol inhaler (unknown) (no (unknown) (unknown) applied (units (unkno wn) date) unknown) (unknown) (no (unknown) (unknown) bacitracin 500 (units (unknown) date) unit/gram ointment unknown) (unknown) (no (unknown) (unknown) bacitracin 500 (units (unknown) date) unit/gram topical 1 unknown) applic topical TID 14 days #28 02/24/22 (unknown) (no (unknown) (unknown) been reviewed with (units (unknown) date) patient as well as unknown) indications for ED re-evaluation and (unknown) (no (unknown) (unknown) burn to his groin (units (unknown) date) unknown) (unknown) (no (unknown) (unknown) cephalexin 500 mg (units (unknown) date) capsule 500 mg PO unknown) QID 5 days #20 caps 02/24/22 (unknown) (no (unknown) (unknown) cephalexin 500 mg (units (unknown) date) capsule unknown) (unknown) (no (unknown) (unknown) constipation, (units ( unknown) date) melena. unknown) (unknown) (no (unknown) (unknown) days. He began (units (unknown) date) becoming it is unknown) concerned when he noticed a red streaking going (unknown) (no (unknown) (unknown) dizziness. (units (unk nown) date) unknown) (unknown) (no (unknown) (unknown) drainage and (units (u nknown) date) discharge from the unknown) wound to his hand. (unknown) (no (unknown) (unknown) drainage noted. (units (unknown) date) Small amount of unknown) erythematous streaking up the dorsal aspect of (unknown) (no (unknown) (unknown) erythematous (units (u nknown) date) streaking up the unknown) dorsal aspect of the hand (unknown) (no (unknown) (unknown) fracture, (units (unkn own) date) osteomyelitis, unknown) flexor tenosynovitis (unknown) (no (unknown) (unknown) icterus. No (units (un known) date) injection or unknown) drainage. (unknown) (no (unknown) (unknown) infected wound to (units (unknown) date) the right 3rd MCP unknown) joint on the dorsal aspect. Patient states (unknown) (no (unknown) (unknown) infection. Please (units (unknown) date) I strongly unknown) recommend you not pick any further at the wound. (unknown) (no (unknown) (unknown) joint infection, (units (unknown) date) flexor unknown) tenosynovitis, osteomyelitis, or fracture. Patient will (unknown) (no (unknown) (unknown) mg-trimethoprim (units (unknown) date) 160 mg tablet unknown) (unknown) (no (unknown) (unknown) noticed some clear (units (unknown) date) and milky drainage unknown) from the wound over the last couple of (unknown) (no (unknown) (unknown) obtained (units (unkno wn) date) unknown) (unknown) (no (unknown) (unknown) ointment grams (units (unknown) date) unknown) (unknown) (no (unknown) (unknown) ondansetron 4 mg (units (unknown) date) disintegrating 4 mg unknown) PO BID-TID PRN nausea and 04/20/19 (unknown) (no (unknown) (unknown) ondansetron 4 mg (units (unknown) date) tablet,disintegrati unknown) ng (unknown) (no (unknown) (unknown) other concerning (units (unknown) date) signs or symptoms. unknown) Tetanus is up-to-date. (unknown) (no (unknown) (unknown) pain with passive (units (unknown) date) flexion or unknown) extension, no joint stiffness (unknown) (no (unknown) (unknown) pantoprazole 20 mg (units (unknown) date) tablet,delayed 20 unknown) mg PO DAILY #14 tabs 04/20/19 (unknown) (no (unknown) (unknown) pantoprazole (units (u nknown) date) [Protonix] 20 mg unknown) tablet,delayed release (DR/EC) (unknown) (no (unknown) (unknown) passive flexion or (units (unknown) date) extension, no joint unknown) stiffness, low concern for any kind of (unknown) (no (unknown) (unknown) prescribed with (units (unknown) date) Keflex and Bactrim unknown) as patient did describe having some milky (unknown) (no (unknown) (unknown) rales, or rhonchi. (units (unknown) date) unknown) (unknown) (no (unknown) (unknown) release (Protonix) (units (unknown) date) unknown) (unknown) (no (unknown) (unknown) seizures, (units (unkn own) date) incoordination. unknown) (unknown) (no (unknown) (unknown) sulfamethoxazole (units (unknown) date) 800 1 tab PO Q12H 5 unknown) days #10 tabs 02/24/22 (unknown) (no (unknown) (unknown) sulfamethoxazole-t (units (unknown) date) rimethoprim unknown) [Bactrim DS] 800-160 mg tablet (unknown) (no (unknown) (unknown) tablet vomiting (units (unknown) date) #10 tabs unknown) (unknown) (no (unknown) (unknown) that he cut his (units (unknown) date) right knuckle a few unknown) days ago and has been picking at it and has (unknown) (no (unknown) (unknown) the infection. The (units (unknown) date) ointment we gave unknown) you should also help avoid any further (unknown) (no (unknown) (unknown) the right hand to (units (unknown) date) approximally the unknown) wrist. No joint irritability, no significant (unknown) (no (unknown) (unknown) these antibiotics (units (unknown) date) at the same time. unknown) Please take with food. This should treat (unknown) (no (unknown) (unknown) to have a small (units (unknown) date) mild superficial unknown) infection to your hand. Please take both of (unknown) (no (unknown) (unknown) tonsillar (units (unkn own) date) hypertrophy or unknown) exudate. Airway patent. (unknown) (no (unknown) (unknown) up the dorsal (units ( unknown) date) aspect of his hand. unknown) Denies any fevers, nausea, vomiting, or any (unknown) (no (unknown) (unknown) wound to the right (units (unknown) date) knuckle. Patient unknown) has no joint irritability, no pain with Result panel 6 (unknown) (no (unknown) (unknown) (no value) (units (unk nown) date) unknown) (unknown) (no (unknown) (unknown) #18 grams (units (unkn own) date) unknown) (unknown) (no (unknown) (unknown) <Electronically (units (unknown) date) signed by Fernando unknown) Matthew Comer.OMarty> (unknown) (no (unknown) (unknown) <Electronically (units (unknown) date) signed by Fernando unknown) Zhou CastroOMarty> (unknown) (no (unknown) (unknown) <Electronically (units (unknown) date) signed by Carrillo Osei unknown) Nam> (unknown) (no (unknown) (unknown) <Fernando Castro DO (units (unknown) date) - Last Filed: unknown) 02/25/22 06:43> (unknown) (no (unknown) (unknown) <Carrillo Browning PA-C - (units (unknown) date) Last Filed: unknown) 02/24/22 16:04> (unknown) (no (unknown) (unknown) <cosigner> (units (unk nown) date) unknown) (unknown) (no (unknown) (unknown) (Bactrim DS) (units (u nknown) date) unknown) (unknown) (no (unknown) (unknown) 02/24/22 1811 (units ( unknown) date) unknown) (unknown) (no (unknown) (unknown) 02/24/22 (units (unkno wn) date) unknown) (unknown) (no (unknown) (unknown) 02/25/22 0643 (units ( unknown) date) unknown) (unknown) (no (unknown) (unknown) 0RF (units (unkno wn) date) unknown) (unknown) (no (unknown) (unknown) 1 applic topical (units (unknown) date) TID 14 Days Qty: 28 unknown) 0RF (unknown) (no (unknown) (unknown) 1 tab PO Q12H 5 (units (unknown) date) Days Qty: 10 0RF unknown) (unknown) (no (unknown) (unknown) 12 point review of (units (unknown) date) systems is negative unknown) except for those stated above (unknown) (no (unknown) (unknown) 15:05 (units (unkno wn) date) unknown) (unknown) (no (unknown) (unknown) 2 puff INHALATION (units (unknown) date) Q4-6H PRN (Reason: unknown) shortness of breath or wheezing) Qty: 18 (unknown) (no (unknown) (unknown) 20 mg PO DAILY (units (unknown) date) Qty: 14 0RF unknown) (unknown) (no (unknown) (unknown) 4 mg PO BID-TID (units (unknown) date) PRN (Reason: nausea unknown) and vomiting) Qty: 10 0RF (unknown) (no (unknown) (unknown) 500 mg PO QID 5 (units (unknown) date) Days Qty: 20 0RF unknown) (unknown) (no (unknown) (unknown) : [id number] (units (u nknown) date) unknown) (unknown) (no (unknown) (unknown) Activity (units (unkno wn) date) Restrictions/Additi unknown) onal Instructions: (unknown) (no (unknown) (unknown) Age/Sex: 26 / M (units (unknown) date) unknown) (unknown) (no (unknown) (unknown) Allergies (units (unkn own) date) unknown) (unknown) (no (unknown) (unknown) Allergy/AdvReac (units (unknown) date) Type Severity unknown) Reaction Status Date / Time (unknown) (no (unknown) (unknown) Asthma (units (unkno wn) date) unknown) (unknown) (no (unknown) (unknown) BACK: Nontender (units (unknown) date) without deformity unknown) or crepitance. No flank tenderness. (unknown) (no (unknown) (unknown) Blood Pressure (units (unknown) date) 118/60 02/24/22 unknown) 15:05 (unknown) (no (unknown) (unknown) Blood Pressure (units (unknown) date) 118/60 unknown) (unknown) (no (unknown) (unknown) CARDIOVASCULAR: (units (unknown) date) Denies chest pain, unknown) palpitations, orthopnea, edema, (unknown) (no (unknown) (unknown) CARDIOVASCULAR: (units (unknown) date) Regular rate and unknown) rhythm without murmurs, gallops, or rubs. (unknown) (no (unknown) (unknown) CC: Infected wound (units (unknown) date) unknown) (unknown) (no (unknown) (unknown) Chief complaint: (units (unknown) date) Skin/Abscess/Foreig unknown) n Body (unknown) (no (unknown) (unknown) Clinical (units (unkno wn) date) Impression: unknown) (unknown) (no (unknown) (unknown) Complicating (units (u nknown) date) co-morbidities: unknown) None (unknown) (no (unknown) (unknown) Consultations: (units (unknown) date) None unknown) (unknown) (no (unknown) (unknown) Cosign (units (unkno wn) date) unknown) (unknown) (no (unknown) (unknown) Course (units (unkno wn) date) unknown) (unknown) (no (unknown) (unknown) : 1995 (units (unknown) date) Acct:[id number] unknown) (unknown) (no (unknown) (unknown) Data collected (units (unknown) date) from: Previous unknown) records (unknown) (no (unknown) (unknown) Date of Service: (units (unknown) date) 02/24/22 unknown) (unknown) (no (unknown) (unknown) Departure (units (unkn own) date) unknown) (unknown) (no (unknown) (unknown) Diagnosis: (units (unk nown) date) Infected wound unknown) (unknown) (no (unknown) (unknown) Differential (units (u nknown) date) considered, but not unknown) limited to: Superficial soft tissue infection, (unknown) (no (unknown) (unknown) Discharge Plan (units (unknown) date) unknown) (unknown) (no (unknown) (unknown) Discontinued (units (u nknown) date) Medications unknown) (unknown) (no (unknown) (unknown) Discussion: (units (un known) date) Discussed plan with unknown) patient who is agreeable with plan to discharge (unknown) (no (unknown) (unknown) Disposition: see (units (unknown) date) below, along with unknown) detailed discharge instructions that have (unknown) (no (unknown) (unknown) Documented By: AT (units (unknown) date) unknown) (unknown) (no (unknown) (unknown) ED Attending (units (u nknown) date) Cosignature unknown) Attestation: (unknown) (no (unknown) (unknown) ENT: Nose without (units (unknown) date) bleeding, purulent unknown) drainage. Throat without erythema, (unknown) (no (unknown) (unknown) ER Physician: (units ( unknown) date) Carrillo Browning P.A-C unknown) (unknown) (no (unknown) (unknown) EXTREMITIES: No (units (unknown) date) edema or joint unknown) tenderness. (unknown) (no (unknown) (unknown) EYES: Pupils equal (units (unknown) date) round and reactive. unknown) Extraocular motions intact. No scleral (unknown) (no (unknown) (unknown) Emergency Report (units (unknown) date) unknown) (unknown) (no (unknown) (unknown) Exam Narrative: (units (unknown) date) unknown) (unknown) (no (unknown) (unknown) Exam documented (units (unknown) date) above, pertinent unknown) findings include: Infected wound with (unknown) (no (unknown) (unknown) Exam (units (unkno wn) date) unknown) (unknown) (no (unknown) (unknown) GASTROINTESTINAL: (units (unknown) date) Abdomen soft, unknown) non-tender, nondistended. (unknown) (no (unknown) (unknown) GASTROINTESTINAL: (units (unknown) date) Denies nausea, unknown) vomiting, abdominal pain, diarrhea, (unknown) (no (unknown) (unknown) GENERAL: Denies (units (unknown) date) chills, fatigue, unknown) malaise, fever, sweats. (unknown) (no (unknown) (unknown) GENERAL: (units (unkno wn) date) Well-developed unknown) patient, in mild distress. (unknown) (no (unknown) (unknown) : Denies (units (unk nown) date) dysuria, frequency, unknown) incontinence, hematuria, urinary retention. (unknown) (no (unknown) (unknown) General (units (unkno wn) date) unknown) (unknown) (no (unknown) (unknown) HEAD: Atraumatic. (units (unknown) date) Normocephalic. unknown) (unknown) (no (unknown) (unknown) HEENT: Denies (units ( unknown) date) sinus pain, ear unknown) pain, sore throat, difficulty swallowing, (unknown) (no (unknown) (unknown) HPI - (units (unkno wn) date) Skin/Abscess/Foreig unknown) n Bdy (unknown) (no (unknown) (unknown) HPI narrative: (units (unknown) date) unknown) (unknown) (no (unknown) (unknown) History of Present (units (unknown) date) Illness unknown) (unknown) (no (unknown) (unknown) I hope you feel (units (unknown) date) better soon. unknown) (unknown) (no (unknown) (unknown) I was immediately (units (unknown) date) available in the unknown) department for consultation. This (unknown) (no (unknown) (unknown) Imaging studies (units (unknown) date) independently unknown) reviewed: None obtained (unknown) (no (unknown) (unknown) Independently (units ( unknown) date) reviewed EKG as unknown) above: None obtained (unknown) (no (unknown) (unknown) Infected wound (units (unknown) date) unknown) (unknown) (no (unknown) (unknown) Initial Vital (units ( unknown) date) Signs unknown) (unknown) (no (unknown) (unknown) Initial Vital (units ( unknown) date) Signs: unknown) (unknown) (no (unknown) (unknown) Instructions: DI (units (unknown) date) for Wound Infection unknown) (unknown) (no (unknown) (unknown) [facility] (units (unknown) date) [address] unknown) [place] [address] (unknown) (no (unknown) (unknown) Lab Test results (units (unknown) date) independently unknown) reviewed as above. Pertinent findings: None (unknown) (no (unknown) (unknown) Last Admin: (units (un known) date) 02/24/22 16:26 unknown) Dose: 1 applic (unknown) (no (unknown) (unknown) MDM - (units (unkno wn) date) Skin/Abscess/Foreig unknown) n Bdy (unknown) (no (unknown) (unknown) MDM Narrative (units ( unknown) date) unknown) (unknown) (no (unknown) (unknown) MIPS Elements: (units (unknown) date) None unknown) (unknown) (no (unknown) (unknown) MUSCULOSKELETAL: (units (unknown) date) denies weakness, unknown) joint pain, or bony pain (unknown) (no (unknown) (unknown) Medical History (units (unknown) date) (Updated 02/24/22 @ unknown) 16:03 by Carrillo Browning PA-C) (unknown) (no (unknown) (unknown) Medical decision (units (unknown) date) making narrative: unknown) (unknown) (no (unknown) (unknown) Medical records (units (unknown) date) reviewed: Patient unknown) was seen here very early this morning for a (unknown) (no (unknown) (unknown) Medication (units (unk nown) date) Instructions unknown) Recorded (unknown) (no (unknown) (unknown) Mode of arrival: (units (unknown) date) Ambulatory unknown) (unknown) (no (unknown) (unknown) Mupirocin (units (unkn own) date) (Mupirocin 22 Gm unknown) Oint) 1 applic TOP BID TARAS (unknown) (no (unknown) (unknown) NECK: Trachea (units ( unknown) date) midline. Non tender unknown) (unknown) (no (unknown) (unknown) NEURO: AOx3. (units (u nknown) date) unknown) (unknown) (no (unknown) (unknown) NEUROLOGIC: Denies (units (unknown) date) weakness, headache, unknown) numbness, change in speech, confusion, (unknown) (no (unknown) (unknown) Narrative (units (unkn own) date) unknown) (unknown) (no (unknown) (unknown) Narrative: (units (unk nown) date) unknown) (unknown) (no (unknown) (unknown) New (units (unkno wn) date) unknown) (unknown) (no (unknown) (unknown) No Action (units (unkn own) date) unknown) (unknown) (no (unknown) (unknown) No Known Drug (units ( unknown) date) Allergies Allergy unknown) Verified 02/24/22 15:05 (unknown) (no (unknown) (unknown) Ordered: (units (unkno wn) date) unknown) (unknown) (no (unknown) (unknown) Orders (units (unkno wn) date) unknown) (unknown) (no (unknown) (unknown) Oxygen Delivery (units (unknown) date) Method 02/24/22 unknown) 15:05 (unknown) (no (unknown) (unknown) Oxygen Delivery (units (unknown) date) Method Room Air unknown) (unknown) (no (unknown) (unknown) PSYCHIATRIC: No (units (unknown) date) concerning unknown) psychosocial issues. (unknown) (no (unknown) (unknown) Patient (units (unkno wn) date) Disposition: Home unknown) (unknown) (no (unknown) (unknown) Patient History (units (unknown) date) unknown) (unknown) (no (unknown) (unknown) Patient: (units (unkno wn) date) zEe Gallagher unknown) T MR# (unknown) (no (unknown) (unknown) Please leave it as (units (unknown) date) is and do not use unknown) any tools to further ?mess with? the wound. (unknown) (no (unknown) (unknown) Prescriptions: (units (unknown) date) unknown) (unknown) (no (unknown) (unknown) Previous Rx's (units ( unknown) date) unknown) (unknown) (no (unknown) (unknown) Pulse Oximetry 98 (units (unknown) date) 02/24/22 15:05 unknown) (unknown) (no (unknown) (unknown) Pulse Oximetry 98 (units (unknown) date) unknown) (unknown) (no (unknown) (unknown) Pulse Rate 73 (units ( unknown) date) 02/24/22 15:05 unknown) (unknown) (no (unknown) (unknown) Pulse Rate 73 (units ( unknown) date) unknown) (unknown) (no (unknown) (unknown) RESPIRATORY: Clear (units (unknown) date) to auscultation. unknown) Breath sounds equal bilaterally. No wheezes, (unknown) (no (unknown) (unknown) RESPIRATORY: (units (u nknown) date) Denies dyspnea, unknown) cough, wheezing, hemoptysis, sputum. (unknown) (no (unknown) (unknown) Re-evaluations: (units (unknown) date) None unknown) (unknown) (no (unknown) (unknown) Related Data (units (u nknown) date) unknown) (unknown) (no (unknown) (unknown) Respiratory Rate (units (unknown) date) 16 02/24/22 15:05 unknown) (unknown) (no (unknown) (unknown) Respiratory Rate (units (unknown) date) 16 unknown) (unknown) (no (unknown) (unknown) Review of Systems (units (unknown) date) unknown) (unknown) (no (unknown) (unknown) SKIN: Open wound (units (unknown) date) to the dorsal unknown) aspect of the right 3rd MCP joint. No purulent (unknown) (no (unknown) (unknown) SKIN: Wound to (units (unknown) date) right knuckle of unknown) 3rd digit (unknown) (no (unknown) (unknown) Scores Used: None (units (unknown) date) unknown) (unknown) (no (unknown) (unknown) Signed By: (units (unk nown) date) unknown) (unknown) (no (unknown) (unknown) Smokeless tobacco (units (unknown) date) user: chewing unknown) tobacco (unknown) (no (unknown) (unknown) Smoking Status: (units (unknown) date) Never smoker unknown) (unknown) (no (unknown) (unknown) Social History (units (unknown) date) (Reviewed 02/24/22 unknown) @ 01:49 by Ashtyn Sandy DO) (unknown) (no (unknown) (unknown) Source: patient (units (unknown) date) unknown) (unknown) (no (unknown) (unknown) Stand Alone Forms: (units (unknown) date) Patient Portal/API unknown) (unknown) (no (unknown) (unknown) Stated complaint: (units (unknown) date) Burn on right hand, unknown) infected? (unknown) (no (unknown) (unknown) Substance Use (units ( unknown) date) Type: does not use unknown) (unknown) (no (unknown) (unknown) Supervised by (units ( unknown) date) Fernando Castro DO unknown) (unknown) (no (unknown) (unknown) Temperature 97.6 F (units (unknown) date) 02/24/22 15:05 unknown) (unknown) (no (unknown) (unknown) Temperature 97.6 F (units (unknown) date) unknown) (unknown) (no (unknown) (unknown) Thank you for (units ( unknown) date) coming to the [facility] Emergency Department today. It seems (unknown) (no (unknown) (unknown) This is a (units (unkn own) date) 26-year-old male unknown) presents to the emergency department due to an (unknown) (no (unknown) (unknown) This is a (units (unkno wn) date) 26-year-old male unknown) presents to the emergency department with an infected (unknown) (no (unknown) (unknown) Time Seen by (units (u nknown) date) Provider: 02/24/22 unknown) 15:36 (unknown) (no (unknown) (unknown) Treatments: Oral (units (unknown) date) antibiotics unknown) prescribed, mupirocin ointment and dressing (unknown) (no (unknown) (unknown) Vital Signs - 8 hr (units (unknown) date) unknown) (unknown) (no (unknown) (unknown) Vital Signs (units (un known) date) unknown) (unknown) (no (unknown) (unknown) Vital signs: (units (u nknown) date) unknown) (unknown) (no (unknown) (unknown) additional (units (unk nown) date) outpatient follow unknown) up (unknown) (no (unknown) (unknown) aerosol inhaler (units (unknown) date) shortness of breath unknown) or wheezing (unknown) (no (unknown) (unknown) albuterol sulfate (units (unknown) date) 90 mcg/actuation 2 unknown) puff inhalation Q4-6H PRN 04/13/19 (unknown) (no (unknown) (unknown) albuterol sulfate (units (unknown) date) 90 mcg/actuation unknown) HFA aerosol inhaler (unknown) (no (unknown) (unknown) applied (units (unkno wn) date) unknown) (unknown) (no (unknown) (unknown) bacitracin 500 (units (unknown) date) unit/gram ointment unknown) (unknown) (no (unknown) (unknown) bacitracin 500 (units (unknown) date) unit/gram topical 1 unknown) applic topical TID 14 days #28 02/24/22 (unknown) (no (unknown) (unknown) been reviewed with (units (unknown) date) patient as well as unknown) indications for ED re-evaluation and (unknown) (no (unknown) (unknown) burn to his groin (units (unknown) date) unknown) (unknown) (no (unknown) (unknown) cephalexin 500 mg (units (unknown) date) capsule 500 mg PO unknown) QID 5 days #20 caps 02/24/22 (unknown) (no (unknown) (unknown) cephalexin 500 mg (units (unknown) date) capsule unknown) (unknown) (no (unknown) (unknown) constipation, (units ( unknown) date) melena. unknown) (unknown) (no (unknown) (unknown) days. He began (units (unknown) date) becoming it is unknown) concerned when he noticed a red streaking going (unknown) (no (unknown) (unknown) dizziness. (units (unk nown) date) unknown) (unknown) (no (unknown) (unknown) documentation has (units (unknown) date) been reviewed and I unknown) agree with assessment and plan. (unknown) (no (unknown) (unknown) drainage and (units (u nknown) date) discharge from the unknown) wound to his hand. (unknown) (no (unknown) (unknown) drainage noted. (units (unknown) date) Small amount of unknown) erythematous streaking up the dorsal aspect of (unknown) (no (unknown) (unknown) erythematous (units (u nknown) date) streaking up the unknown) dorsal aspect of the hand (unknown) (no (unknown) (unknown) fracture, (units (unkn own) date) osteomyelitis, unknown) flexor tenosynovitis (unknown) (no (unknown) (unknown) icterus. No (units (un known) date) injection or unknown) drainage. (unknown) (no (unknown) (unknown) infected wound to (units (unknown) date) the right 3rd MCP unknown) joint on the dorsal aspect. Patient states (unknown) (no (unknown) (unknown) infection. Please (units (unknown) date) I strongly unknown) recommend you not pick any further at the wound. (unknown) (no (unknown) (unknown) joint infection, (units (unknown) date) flexor unknown) tenosynovitis, osteomyelitis, or fracture. Patient will (unknown) (no (unknown) (unknown) mg-trimethoprim (units (unknown) date) 160 mg tablet unknown) (unknown) (no (unknown) (unknown) noticed some clear (units (unknown) date) and milky drainage unknown) from the wound over the last couple of (unknown) (no (unknown) (unknown) obtained (units (unkno wn) date) unknown) (unknown) (no (unknown) (unknown) ointment grams (units (unknown) date) unknown) (unknown) (no (unknown) (unknown) ondansetron 4 mg (units (unknown) date) disintegrating 4 mg unknown) PO BID-TID PRN nausea and 04/20/19 (unknown) (no (unknown) (unknown) ondansetron 4 mg (units (unknown) date) tablet,disintegrati unknown) ng (unknown) (no (unknown) (unknown) other concerning (units (unknown) date) signs or symptoms. unknown) Tetanus is up-to-date. (unknown) (no (unknown) (unknown) pain with passive (units (unknown) date) flexion or unknown) extension, no joint stiffness (unknown) (no (unknown) (unknown) pantoprazole 20 mg (units (unknown) date) tablet,delayed 20 unknown) mg PO DAILY #14 tabs 04/20/19 (unknown) (no (unknown) (unknown) pantoprazole (units (u nknown) date) [Protonix] 20 mg unknown) tablet,delayed release (DR/EC) (unknown) (no (unknown) (unknown) passive flexion or (units (unknown) date) extension, no joint unknown) stiffness, low concern for any kind of (unknown) (no (unknown) (unknown) prescribed with (units (unknown) date) Keflex and Bactrim unknown) as patient did describe having some milky (unknown) (no (unknown) (unknown) rales, or rhonchi. (units (unknown) date) unknown) (unknown) (no (unknown) (unknown) release (Protonix) (units (unknown) date) unknown) (unknown) (no (unknown) (unknown) seizures, (units (unkn own) date) incoordination. unknown) (unknown) (no (unknown) (unknown) sulfamethoxazole (units (unknown) date) 800 1 tab PO Q12H 5 unknown) days #10 tabs 02/24/22 (unknown) (no (unknown) (unknown) sulfamethoxazole-t (units (unknown) date) rimethoprim unknown) [Bactrim DS] 800-160 mg tablet (unknown) (no (unknown) (unknown) tablet vomiting (units (unknown) date) #10 tabs unknown) (unknown) (no (unknown) (unknown) that he cut his (units (unknown) date) right knuckle a few unknown) days ago and has been picking at it and has (unknown) (no (unknown) (unknown) the infection. The (units (unknown) date) ointment we gave unknown) you should also help avoid any further (unknown) (no (unknown) (unknown) the right hand to (units (unknown) date) approximally the unknown) wrist. No joint irritability, no significant (unknown) (no (unknown) (unknown) these antibiotics (units (unknown) date) at the same time. unknown) Please take with food. This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
--- NOTE | 2022-04-12 03:24 | ED Physician Documentation ---
History of Present Illness - Stated complaint Stated Complaint: RHR/SHOULDER PX - Chief complaint Chief Complaint: General - History obtained from History obtained from: Patient - Additonal information Additional information: patient c/o mild COMMUNICATION ASSISTANT cough, dyspnea since this morning. Tonight, while in bed at rest, developed rapid palpitations. Denies fever. Sensation of palpitations has resolved by the time of this H+P Review of Systems Constitutional: denies: Fever, Chills, Sweats Cardiac: reports: Palpitations. denies: Chest pain / pressure, Pedal edema, Calf pain Respiratory: reports: Dyspnea, Cough. denies: Hemoptysis, Wheezing Neurologic: denies: Headache PD PAST MEDICAL HISTORY - Past Medical History Cardiovascular: None Respiratory: None Neuro: None Endocrine/Autoimmune: None GI: None : None HEENT: None Psych: None Musculoskeletal: None Derm: None - Past Surgical History Past Surgical History: No - Present Medications Home Medications: Ambulatory Orders Medication Instructions Recorded Confirmed No Known Home Medications 01/18/22 04/12/22 - Allergies Allergies/Adverse Reactions: Allergies Allergy/AdvReac Type Severity Reaction Status Date / Time No Known Drug Allergies Allergy Verified 04/12/22 02:02 - Social History Does the pt smoke?: Yes Smoking Status: Current every day smoker Does the pt drink ETOH?: Yes Does the pt have substance abuse?: No - Immunizations Immunizations are current?: No - POLST Patient has POLST: No PD ED PE NORMAL - Vitals Vital signs reviewed: Yes - General General: Alert and oriented X 3, No acute distress, Well developed/nourished - HEENT HEENT: Moist mucous membranes - Neck Neck: Supple, no meningeal sign - Cardiac Cardiac: RRR, No murmur, No gallop, No rub - Respiratory Respiratory: No respiratory distress, Clear bilaterally - Extremities Extremities: No edema Results - Vitals Vitals: Oxygen O2 Source Room air - Labs Labs: Laboratory Tests 04/12/22 04:10 Nasal Adenovirus (PCR) NOT DETECTED Nasal B. parapertussis DNA (PCR) NOT DETECTED Nasal Coronavir 229E PCR NOT DETECTED Nasal Coronavir HKU1 PCR NOT DETECTED Nasal Coronavir NL63 PCR NOT DETECTED Nasal Coronavir OC43 PCR NOT DETECTED Nasal Enterovir/Rhinovir PCR DETECTED A Nasal Influenza B PCR NOT DETECTED Nasal Influenza A PCR NOT DETECTED Nasal Parainfluen 1 PCR NOT DETECTED Nasal Parainfluen 2 PCR NOT DETECTED Nasal Parainfluen 3 PCR NOT DETECTED Nasal Parainfluen 4 PCR NOT DETECTED Nasal RSV (PCR) NOT DETECTED Nasal B.pertussis DNA PCR NOT DETECTED Nasal C.pneumoniae (PCR) NOT DETECTED Vito Human Metapneumo PCR NOT DETECTED Nasal M.pneumoniae (PCR) NOT DETECTED Nasal SARS-CoV-2 (PCR) NOT DETECTED - Rads (name of study) chest xray Radiology: Prelim report reviewed, EMP read indepedently, See rad report PD Medical Decision Making - ED course Complexity details: reviewed results, re-evaluated patient, considered differential, d/w patient ED course: normal chest xray. Respiratory PCR panel is positive for entero/rhinovirus. Results d/w patient. He is in NAD and normal exam initially as well as on reevaluation after tests resulted. Return precautions discussed. Departure - Departure Disposition: 01 Home, Self Care Clinical Impression: Upper respiratory infection Condition: Good Instructions: ED URI Viral Comments: Your chest x-ray was normal. On the nasal swab, you tested positive for rhinovirus. This is considered a "common cold" virus; There is no specific treatment for this virus, and it should run its course over the next few days.As we discussed, realize that it is contagious as are most viral infections. It does not require quarant ine/isolation like COVID does, but you should take common-sense precautions to prevent spreading it to others (such as staying home until you feel well, wearing a mask when you are out in public). You were negative for all the other viruses that were tested tonight, including COVID, influenza, RSV. Forms: Activity restrictions Discharge Date/Time: 04/12/22 05:40
[2022-04-12 05:06] LABS: B. PARAPERTUSSIS- RESP PCR PAN NOT DETECTED; B. PERTUSSIS- RESP PCR PANEL NOT DETECTED; C. PNEUMONIAE- RESP PCR PANEL NOT DETECTED; CORONAVIRUS 229E-RESP PCR NOT DETECTED; CORONAVIRUS HKU1-RESP PCR NOT DETECTED; CORONAVIRUS NL63-RESP PCR NOT DETECTED; CORONAVIRUS OC43-RESP PCR NOT DETECTED; HUMAN METAPNEUMOVIRUS NOT DETECTED; INFLUENZA A- RESP PCR PANEL NOT DETECTED; INFLUENZA B - RESP PCR PANEL NOT DETECTED; M. PNEUMONIAE- RESP PCR PANEL NOT DETECTED; PARAINFLUENZA VIRUS 1 NOT DETECTED; PARAINFLUENZA VIRUS 2 NOT DETECTED; PARAINFLUENZA VIRUS 3 NOT DETECTED; PARAINFLUENZA VIRUS 4 NOT DETECTED; RHINOVIRUS/ENTEROVIRUS DETECTED; RSV- RESP PCR PANEL NOT DETECTED; SARS-CoV-2 -RESP PCR PANEL NOT DETECTED
[2022-04-12 06:00] VITALS: BP 116/75
--- NOTE | 2022-04-12 08:22 | XRAY Report ---
PROCEDURE: Chest 2 View X-Ray INDICATIONS: dyspnea, cough TECHNIQUE: 2 views of the chest were acquired. COMPARISON: None. FINDINGS: Surgical changes and devices: None. Lungs and pleura: No pleural effusions or pneumothorax. Lungs are clear. Mediastinum: Mediastinal contours are normal. Heart size is normal. Bones and chest wall: No suspicious bony abnormalities. Soft tissues appear unremarkable. IMPRESSION: No acute cardiopulmonary findings. These findings are concordant with the overnight interpretation. Reviewed by: Antonia Clarke MD on 04/12/2022 8:21 AM PST Approved by: Antonia Clarke MD on 04/12/2022 8:21 AM [facility] Station ID: [id number]
== END 2022-04-12 05:40 | disposition home or self-care (01) ==
LOC: ED 01:45
DX: J02.9 Acute pharyngitis, unspecified (principal); Z20.822 Contact with and (suspected) exposure to COVID-19; F17.200 Nicotine dependence, unspecified, uncomplicated
CPT/HCPCS: 87633; 99283